=== PATIENT | male | born 1940 | race Caucasian/White ===

== ENCOUNTER 2016-07-07 09:14 | Outpatient (RCR) | payer MEDICARE, BC, OTHER ==
[~2016-07-07 09:14] MED LIST: ACET-93 PO; ASPI-504 PO; CPR500T PO; FRSM40T PO; ISM30TCR PO; LOVA40TA2 PO; NAPR1TAB21 PO; POTA10CA43 PO; POTA10TA6 PO; SMV10T PO; TICA90TA PO; TMSL.4C PO; cholesterol
--- OUTSIDE RECORDS SUMMARY | 2016-07-07 09:19 | XMS REPORT | Continuity of Care Document ---
Author Author [facility] Organization [facility] Address Unknown Phone Unavailable Care Team Providers Care Sexton Helper Name Role Phone LEANDRO BLACKMAN MD PCP Insurance Providers Payer Name Policy Number Subscriber Name Relationship [employer] Medicare [id number] Michael,Nate H 20 Self / Same As Patient [facility] [id number] Heber Rodriguez E 01 For Life [id number] Kyung Rodriguezterrence Cole 20 Self / Same As Patient Advance Directives Directive Response Recorded Date/Time Advance Directives No 03/12/16 12:24pm Organ Donor No 03/12/16 12:24pm Resuscitation Status Full Code 03/12/16 12:24pm Problems No problem information available. Medications Current Home Medications Medication Dose Units Route Directions Days/Qty Instructions Start Date Aspirin 81 Mg 81 Mg Oral Bedtime 12/05/13 Lovastatin (Mevacor) 40 Mg 40 Mg Oral Bedtime 12/06/13 Acetaminophen 500 Mg 1,000 Mg Oral Twice A Day as needed for Pain TAKES 2 (500 MG) TABLETS 03/12/16 Ticagrelor 90 Mg 90 Mg Oral Twice A Day 60 03/13/16 Past Home Medications Medication Directions Ordered Status Furosemide 40 Mg Tab, 40 Mg Oral Daily 12/05/13 Discontinued Naproxen/Esomeprazole Mag 1 Each Tbmp.12hr, 1 Each Oral Twice A Day 12/05/13 Discontinued Potassium Chloride (Micro K) 10 Meq Capsule.sa, 1 Each Oral Daily 12/05/13 Discontinued [Cholesterol] Unknown Strength , Unknown Dose 12/05/13 Discontinued Ciprofloxacin 500 Mg Tab, 500 Mg Oral Twice A Day 12/05/13 Discontinued Potassium Chloride 10 Meq Tablet.sa, 10 Meq Oral Daily 12/06/13 Discontinued Isosorbide Mononitrate 30 Mg Tab, 30 Mg Oral Daily@0630 12/07/13 Discontinued Simvastatin 10 Mg Tab, 10 Mg Oral Bedtime 03/14/14 Discontinued Tamsulosin Hcl 0.4 Mg Cap, 0.4 Mg Oral Daily@1800 03/14/14 Discontinued Social History Social History Problem Response Recorded Date/Time Alcohol Use Denies Use 03/11/2014 7:13am Recreational Drug Use No 03/11/2014 7:13am Recent Foreign Travel No 03/11/2014 7:13am Recent Infectious Disease Exposure No 03/11/2014 7:13am Hospitalization with Isolation Denies 03/14/2014 12:19pm Smoking Status Current Everyday Smoker 03/12/2016 12:24pm Query Response Start Date Stop Date Smoking Status Current Everyday Smoker Hospital Discharge Instructions Patient Instructions Physician Instructions Follow Up/Plan appointment with Dr. Quiles's office in 2-4 weeks CARDIAC CATH DISCHARGE INSTRUCTIONS *Hold Metformin for 48 hours post heart cath. ACTIVITY * Go Home directly and rest. * Limit activity of the leg (or wrist if it was used) for 7 days including aerobics, swimming, jogging, bicycling, etc. * Restrict stair-climbing for 7 days if possible, if not, climb up with your non-cath leg, then bring together on the same step. * Avoid lifting, pushing, pulling or excessive movement of the affected extremity for 7 days. * Customary sexual activity may be resumed after 2 days-use caution not to use a position that strains or causes pain to the affected extremity. * No driving for 24 hours. * NO SMOKING. * Avoid straining for bowel movements for 7 days. * Gentle walking on level ground is allowed. * Returning to work will depend on the type of procedure and the results. Your doctor will discuss this with you. CALL YOUR DOCTOR FOR ANY OF THE FOLLOWING: *If bleeding from the puncture site occurs- Apply gentle pressure to site with clean cloth and call your doctor or EMS. * If a knot or lump forms under the skin, increases in size, or causes pain. * If bruising appears to be worsening or moving further down your leg instead of disappearing. * Temperature above 101 F. CARE OF YOUR GROIN INCISION; * Bruising or purple discoloration of the skin near the puncture site is common. * You may shower only, no bathtub bathing for 5 days. Be careful to avoid slipping as your leg may feel stiff. * If a closure device was used on your femoral artery, please see the attached guide regarding care of the device and your leg. * REMOVE the dressing from your groin the next day after your procedure in the shower. CARE OF YOUR WRIST INCISION; * Bruising or purple discoloration of the skin near the puncture site is common. * You may shower. * DO NOT submerge wrist. * Remove dressing in 24 hours. Plan of Care Discharge Date 03/13/16 9:50am Instructions/Education Provided CARDIAC CATH DISCHARGE INSTRUC Prescriptions See Medication Section Functional Status Query Response Date Recorded Patient Orientation Person Place Time Situation March 13, 2016 12:08pm Comprehension Ability Understands Concepts March 13, 2016 8:05am Allergies, Adverse Reactions, Alerts No known allergies. Immunizations Name Given Type Date of Pneumonia Vaccine 03/03/13 Historical Date of Influenza Vaccine 08/12/15 Historical Tetanus Booster (TDap) Less than 5yrs Historical Vital Signs Acute Vital Signs Vital Response Date/Time Temperature (Fahrenheit) 97.6 degrees F (97.6 - 99.5) 03/13/2016 9:50am Temperature (Calculated Celsius) 36.52733 degrees C (36.4 - 37.5) 03/13/2016 8:05am Temperature Source Tympanic 03/13/2016 9:50am Pulse Rate (adult) 60 bpm (60 - 90) 03/13/2016 9:50am Respiratory Rate 20 bpm (12 - 24) 03/13/2016 9:50am O2 Sat by Pulse Oximetry 97 % (88 - 100) 03/13/2016 9:50am Blood Pressure 125/70 mm Hg 03/13/2016 9:50am Blood Pressure Mean 88 mm Hg 03/13/2016 8:05am Pain Pain Intensity 0 03/13/2016 8:09am Height (Feet) 5 feet 03/12/2016 12:37pm Height (Inches) 9.00 inches 03/12/2016 12:37pm Height (Calculated Centimeters) 175.049031 cm 03/12/2016 12:37pm Weight (Pounds) 187 pounds 03/12/2016 12:37pm Weight (Ounces) 0.0 oz 03/12/2016 12:37pm Weight (Calculated Grams) 27994.774 gm 03/12/2016 12:37pm Weight (Calculated Kilograms) 84.655950 kilograms 03/12/2016 12:37pm Calculated BMI 27.6 03/12/2016 12:37pm Results Pending Laboratory Results Test Name Collection Date/Time Procedures Procedure Status Date Provider(s) Tracing only of electrocardiogram Active 03/12/16 CORETTA QUILES MD Tracing only of electrocardiogram Active 03/12/16 CORETTA QUILES MD Encounters Encounter Location Arrival/Admit Date Discharge/Depart Date Attending Provider Departed [facility] 03/12/16 12:05pm 03/13/16 9:50am CORETTA QUILES MD Registered Clinic [facility] 02/25/16 1:04pm AMERICA DALTON MD Registered Clinic [facility] 02/13/16 12:51pm POLINA FORTUNE DO
== END 2016-10-05 | disposition home or self-care (01) ==
LOC: ONC 09:14
PROVIDERS: ATTEND Internal Medicine Hematology & Oncology
DX: D72.821 Monocytosis (symptomatic) (principal); D47.2 Monoclonal gammopathy; R91.1 Solitary pulmonary nodule; J44.9 Chronic obstructive pulmonary disease, unspecified; I73.9 Peripheral vascular disease, unspecified; N28.1 Cyst of kidney, acquired; F17.210 Nicotine dependence, cigarettes, uncomplicated
CPT/HCPCS: 99213

== ENCOUNTER → 2016-11-10 | Outpatient (CLI) | payer MEDICARE, BC, OTHER ==
[~2016-11-10] MED LIST changes: +CATHETER FLUSH 10 ML SYR IV PRN
--- OUTSIDE RECORDS SUMMARY | 2016-11-10 07:29 | XMS REPORT | Continuity of Care Document ---
Author Author [facility] Organization [facility] Address Unknown Phone Unavailable Care Team Providers Care Hall Clerk Name Role Phone LEANDRO BLACKMAN MD PCP Insurance Providers Payer Name Policy Number Subscriber Name Relationship W[employer] [id number] Nate Rodriguez 20 Self / Same As Patient [facility] [id number] Heber Rodriguez E 01 For Life [id number] Nate Rodriguez 20 Self / Same As Patient Advance Directives Directive Response Recorded Date/Time Advance Directives No 03/12/16 12:24pm Organ Donor No 03/12/16 12:24pm Problems No problem information available. [...] 7:13am Hospitalization with Isolation Denies 03/14/2014 12:19pm Hospitalization with Isolation Denies 03/14/2014 12:19pm Hospital Discharge Instructions Current inpatient/outpatient. Discharge instructions are currently unavailable. Plan of Care Prescriptions Functional Status No functional status results. Allergies, Adverse Reactions, Alerts No known allergies. Immunizations No immunization records. Vital Signs No known vital signs results. Results No known relevant diagnostic tests, laboratory data and/or discharge summary. Procedures No known history of procedures. Encounters Encounter Location Arrival/Admit Date Discharge/Depart Date Attending Provider Registered Clinic [facility] 09/06/16 3:11pm AMERICA DALTON MD Discharged Recurring [facility] 07/07/16 9:14am 11:59pm BRAXTON CONNOR MD
[2016-11-10 09:17] VITALS: BP 120/70
[2016-11-10 09:23] VITALS: BP 131/53
[2016-11-10 09:26] VITALS: BP 110/55
[2016-11-10 09:29] VITALS: BP 134/69
[2016-11-10 09:31] VITALS: BP 127/67
--- NOTE | 2016-11-11 09:19 | STRESS TEST ---
PROCEDURE PHYSICIAN: CORETTA KING DATE OF PROCEDURE: 11/10/2016 EXERCISE MYOVIEW STRESS TEST REPORT: REFERRING PHYSICIAN: Dr. Lorenzo INDICATION: 1. Chest pain. 2. Coronary artery disease. BASELINE HEART RATE: 64 BASELINE BLOOD PRESSURE: 117/77 BASELINE EKG: Sinus rhythm with no ischemic changes. IN SUMMARY: The patient was injected with 10.88 mCi of technetium 99 Myoview and the resting images were obtained. Then the patient started exercising with a baseline heart rate, blood pressure, and EKG mentioned above. At minute 5, the patient was injected with 29.1 mCi of technetium 99 Myoview. The patient was able to finish a total of 6 minutes on standard Sincere protocol, achieving maximum heart rate of 120, which is 82% of maximum expected heart rate. With peak exercise level, EKG was showing nondiagnostic changes. Blood pressure was 140/96. During recovery, heart rate and blood pressure returned to baseline. EKG returned to baseline. The resting and stress images were reviewed and compared in the short axis, horizontal long axis, and vertical long axis views. Review of the images showed diaphragmatic attenuation with typical male pattern. No significant ischemia or infarction. SSS is 3, SDS 3, TID value 1.06. On the gated images, the left ventricle appeared to be normal size with normal contractility. Calculated ejection fraction 53%. IN CONCLUSION: 1. Fair exercise tolerance a total of 6 minutes on standard Sincere protocol. Total of 7 METs achieving 82% of maximum expected heart rate. 2. Minimal nondiagnostic EKG changes with exercise. Returned to baseline during recovery. 3. Typical male pattern with no significant ischemia or infarction on SPECT images. 4. Normal left ventricular size with normal contractility. Calculated ejection fraction 53%. Job ID: [id number] Dictated Date: 11/10/2016 15:59:40 Die Designer Apprentice Date: 11/11/2016 09:14:22 / heidy
== END ==
LOC: CARD 07:24
PROVIDERS: ATTEND Physician Assistant
DX: I25.10 Atherosclerotic heart disease of native coronary artery without angina pectoris (principal); I65.23 Occlusion and stenosis of bilateral carotid arteries; R07.89 Other chest pain; E78.2 Mixed hyperlipidemia
CPT/HCPCS: 78452; 93017

== ENCOUNTER 2017-01-05 09:31 | Outpatient (RCR) | payer MEDICARE, BC, OTHER ==
[2017-01-03 08:10] LABS: PEP REPORT SEE PATH REPORT
[2017-01-03 08:11] LABS: BASOPHILS # (AUTO) 0.1 10^3/uL (0.0-0.1); BASOPHILS % (AUTO) 1 % (0-10); EOSINOPHILS # (AUTO) 0.2 10^3/uL (0.0-0.3); EOSINOPHILS % (AUTO) 2 % (0-10); LYMPHOCYTES # (AUTO) 2.8 X 10^3 (1.0-4.0); LYMPHOCYTES % (AUTO) 26 % (12-44); MEAN CORPUSCULAR HEMOGLOBIN 29 PG (25-34); MEAN CORPUSCULAR HGB CONC 34 G/DL (32-36); MEAN CORPUSCULAR VOLUME 87 FL (80-99); MEAN PLATELET VOLUME 10.1 FL (7.4-10.4); MONOCYTES # (AUTO) 1.2 X 10^3 (0.0-1.0); MONOCYTES % (AUTO) 12 % (0-12); NEUTROPHILS # (AUTO) 6.3 X 10^3 (1.8-7.8); NEUTROPHILS % (AUTO) 60 % (42-75); PLATELET COUNT 253 10^3/uL (130-400); RED BLOOD COUNT 5.58 10^6/uL (4.35-5.85); RED CELL DISTRIBUTION WIDTH 14.4 % (10.0-14.5); WHITE BLOOD COUNT 10.5 10^3/uL (4.3-11.0)
[2017-01-03 08:32] LABS: ALANINE AMINOTRANSFERASE 10 U/L (0-55); ALBUMIN 3.9 G/DL (3.2-4.5); ANION GAP 7 MMOL/L (5-14); ASPARTATE AMINO TRANSFERASE 14 U/L (5-34); BILIRUBIN,TOTAL 0.4 MG/DL (0.1-1.0); BLOOD UREA NITROGEN 14 MG/DL (7-18); BUN/CREATININE RATIO 14; CALCIUM 9.2 MG/DL (8.5-10.1); CARBON DIOXIDE 26 MMOL/L (21-32); CHLORIDE 106 MMOL/L (98-107); CREATININE SERUM 1.02 MG/DL (0.60-1.30); GFR ESTIMATED > 60; GLUCOSE 99 MG/DL (70-105); POTASSIUM 4.1 MMOL/L (3.6-5.0); SODIUM 139 MMOL/L (135-145); TOTAL PROTEIN 6.8 G/DL (6.4-8.2)
[2017-01-04 03:25] LABS: IMMUNOGLOBULIN IGA 136 mg/dL (71-263); IMMUNOGLOBULIN IGG 1037 mg/dL (672-1680); LIGHT CHAIN KAPPA SERUM QUANT 38.65 mg/L (3.30-19.40); LIGHT CHAIN LAMBDA SERUM QUANT 17.41 mg/L (5.71-26.30)
[2017-01-04 07:12] LABS: IMMUNOGLOBULIN IGM 134 mg/dL (47-209)
[~2017-01-05 09:31] MED LIST changes: -CATHETER FLUSH 10 ML SYR IV PRN
[2017-01-06 07:32] LABS: CLIN PATHOLOGY REPORT FOOTNOTE; SERUM PROTEIN ELEC DETAIL L-17-0004381
== END 2017-04-03 | disposition home or self-care (01) ==
LOC: ONC 09:31
PROVIDERS: ATTEND Internal Medicine Hematology & Oncology
DX: D72.821 Monocytosis (symptomatic) (principal); D47.2 Monoclonal gammopathy; R91.1 Solitary pulmonary nodule; J44.9 Chronic obstructive pulmonary disease, unspecified; I73.9 Peripheral vascular disease, unspecified; N28.1 Cyst of kidney, acquired; F17.210 Nicotine dependence, cigarettes, uncomplicated
CPT/HCPCS: 36415; 80053; 82784; 83883; 84155; 84165; 85025; 99213

== ENCOUNTER → 2017-04-27 | Outpatient (CLI) | payer MEDICARE, BC, OTHER ==
--- NOTE | 2017-04-27 10:54 | Diagnostic Imaging Report ---
INDICATION: Right-sided fullness COMPARISON: None FINDINGS: 3 views of the sinuses are obtained. There is near-complete opacification of the right maxillary sinus with somewhat masslike rounded contour medially suggestive of a mucous retention cysts or polyps. There is very minimal mucosal thickening in the left maxillary sinus. No osseous abnormality is seen. IMPRESSION: 1. Near complete opacification of the right maxillary sinus may be related to severe sinusitis or to a mucous retention cyst or polyp. Minimal left maxillary sinus inflammatory change. 2. No additional abnormality is seen. Dictated by: Dictated on workstation # [id number]
== END ==
LOC: RAD 08:46
DX: J01.01 Acute recurrent maxillary sinusitis (principal)
CPT/HCPCS: 70220

== ENCOUNTER → 2017-05-04 | Outpatient (CLI) | payer MEDICARE, BC, OTHER ==
--- NOTE | 2017-05-04 13:49 | Diagnostic Imaging Report ---
PROCEDURE: CT chest without contrast. TECHNIQUE: Multiple contiguous axial images were obtained through the chest without the use of intravenous contrast. INDICATION: Chronic bronchitis. FINDINGS: The previous CT chest exam of 04/09/16 noted chronic pulmonary disease but failed to show any sign of an acute cardiopulmonary abnormality. On this study, the chronic pulmonary changes are again visualized and do not seem to have changed significantly. There is still no sign of failure, pneumonia or pleural effusion to indicate an acute abnormality. The previous study did show a small 4 mm noncalcified nodule along the periphery of the right upper lung. That finding is again evident and does not appear to have changed significantly (image 19 of 66). There is also a 3.8 mm nodule along the posterior aspect of the right upper lobe (image 21 of 66). In retrospect, this was present on the prior exam and does not seem to have changed significantly. I suspect that this is a benign process. There is no other parenchymal lung mass identified. The heart size is stable. The dense coronary artery calcifications seen previously are again evident. The aorta is not abnormally dilated, stable in size when compared to the prior exam. There is no obvious mediastinal or hilar adenopathy. There are a few small nodes but these seem stable when compared to the prior exam. The thyroid gland is generally unremarkable. The sections through the upper abdomen again show the large roughly 9 cm cyst associated with the left kidney. There is no acute abnormality identified. The bone windows are unremarkable for a fracture or for a destructive lesion. IMPRESSION: 1. There is chronic pulmonary disease but there is no sign of an acute cardiopulmonary abnormality. 2. The small nodules in the right lung are most likely benign. A followup CT chest exam in one year would be recommended for continued evaluation, however. 3. The heart is not enlarged but there are dense coronary artery calcifications. 4. The large cyst associated with the left kidney is again evident. Most likely, this is a benign process. Dictated by: Dictated on workstation # [id number]
== END ==
LOC: RAD 10:20
PROVIDERS: ATTEND Nurse Practitioner Family
DX: J44.9 Chronic obstructive pulmonary disease, unspecified (principal); R91.1 Solitary pulmonary nodule; R06.09 Other forms of dyspnea; Z72.0 Tobacco use
CPT/HCPCS: 71250

== ENCOUNTER → 2017-05-26 | Outpatient (CLI) | payer MEDICARE, BC, OTHER ==
--- NOTE | 2017-05-26 14:13 | Diagnostic Imaging Report ---
CLINICAL INDICATION: Patient with congestion on right side. No history of surgery. EXAM: Axial maxillofacial CT scan performed without IV contrast with coronal reformations. COMPARISON: None. FINDINGS: PARANASAL SINUSES: FRONTAL: Unremarkable. ETHMOID: Unremarkable. MAXILLARY: There is near complete consolidation of the right maxillary sinus. There is also chronic sinusitis, bony sclerosis and thickening involving the right maxillary sinus. The left maxillary sinus is clear. SPHENOID: Unremarkable. OTHER PARANASAL SINUS FINDINGS: The bilateral ostiomeatal unit regions are clear. There is belkis bullosa of both middle nasal turbinates. There is paradoxical curvature of both middle nasal turbinates. NASAL SEPTUM: The nasal septum is significantly tortuous and demonstrates 5 mm of rightward nasal septal deviation anteriorly and predominantly 3 mm of leftward nasal septal deviation in its midportion with an associated 4 mm leftward directed nasal septal bony spur. VISUALIZED TEMPORAL BONE STRUCTURES: Unremarkable. BONY STRUCTURES: There is no acute process. EXTRACRANIAL SOFT TISSUE/ ORBITS: Unremarkable. IMPRESSION: 1: There is near complete consolidation of the right maxillary sinus. There are also right maxillary sinus bony chronic sinusitis changes. 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 3: Tortuous nasal septum including a leftward directed nasal septal bony spur. 4: Paradoxical curvature of both middle nasal turbinates. Dictated by: Dictated on workstation # [id number]
== END ==
LOC: RAD 13:32
PROVIDERS: ATTEND Otolaryngology Otolaryngology/Facial Plastic Surgery
DX: J32.0 Chronic maxillary sinusitis (principal); J34.89 Other specified disorders of nose and nasal sinuses
CPT/HCPCS: 70486

== ENCOUNTER 2017-06-30 09:56 | Outpatient (RCR) | payer MEDICARE, BC, OTHER ==
[2017-06-22 08:46] LABS: BASOPHILS % (AUTO) 0 % (0-10); EOSINOPHILS # (AUTO) 0.3 10^3/uL (0.0-0.3); EOSINOPHILS % (AUTO) 2 % (0-10); LYMPHOCYTES # (AUTO) 3.3 X 10^3 (1.0-4.0); LYMPHOCYTES % (AUTO) 23 % (12-44); MEAN CORPUSCULAR HEMOGLOBIN 29 PG (25-34); MEAN CORPUSCULAR HGB CONC 33 G/DL (32-36); MEAN CORPUSCULAR VOLUME 88 FL (80-99); MEAN PLATELET VOLUME 9.3 FL (7.4-10.4); MONOCYTES # (AUTO) 1.4 X 10^3 (0.0-1.0); MONOCYTES % (AUTO) 10 % (0-12); NEUTROPHILS # (AUTO) 9.3 X 10^3 (1.8-7.8); NEUTROPHILS % (AUTO) 65 % (42-75); PLATELET COUNT 247 10^3/uL (130-400); RED BLOOD COUNT 5.35 10^6/uL (4.35-5.85); RED CELL DISTRIBUTION WIDTH 15.7 % (10.0-14.5); WHITE BLOOD COUNT 14.3 10^3/uL (4.3-11.0)
[2017-06-22 08:54] LABS: PEP REPORT SEE PATH REPORT
[2017-06-22 09:22] LABS: ALANINE AMINOTRANSFERASE 17 U/L (0-55); ALBUMIN 3.8 GM/DL (3.2-4.5); ANION GAP 7 MMOL/L (5-14); ASPARTATE AMINO TRANSFERASE 13 U/L (5-34); BILIRUBIN,TOTAL 0.6 MG/DL (0.1-1.0); BLOOD UREA NITROGEN 12 MG/DL (7-18); BUN/CREATININE RATIO 14; CALCIUM 9.1 MG/DL (8.5-10.1); CARBON DIOXIDE 28 MMOL/L (21-32); CHLORIDE 103 MMOL/L (98-107); CREATININE SERUM 0.84 MG/DL (0.60-1.30); GFR ESTIMATED > 60; GLUCOSE 96 MG/DL (70-105); POTASSIUM 4.4 MMOL/L (3.6-5.0); SODIUM 138 MMOL/L (135-145); TOTAL PROTEIN 6.8 GM/DL (6.4-8.2)
[2017-06-23 08:28] LABS: LIGHT CHAIN KAPPA SERUM QUANT 34.09 mg/L (3.30-19.40); LIGHT CHAIN LAMBDA SERUM QUANT 10.18 mg/L (5.71-26.30)
[2017-06-24 09:17] LABS: CLIN PATHOLOGY REPORT FOOTNOTE; SERUM PROTEIN ELEC DETAIL L-17-0012510
== END 2017-07-02 | disposition home or self-care (01) ==
LOC: ONC 09:56
PROVIDERS: ATTEND Internal Medicine Hematology & Oncology
DX: D72.821 Monocytosis (symptomatic) (principal); D47.2 Monoclonal gammopathy; R91.1 Solitary pulmonary nodule; J44.9 Chronic obstructive pulmonary disease, unspecified; I73.9 Peripheral vascular disease, unspecified; N28.1 Cyst of kidney, acquired; F17.210 Nicotine dependence, cigarettes, uncomplicated
CPT/HCPCS: 36415; 80053; 83883; 84155; 84165; 85025; 99213

== ENCOUNTER → 2017-11-09 | Outpatient (CLI) | payer MEDICARE, BC, OTHER ==
[~2017-11-09] VITALS: Ht 175.3 cm; Wt 77.6 kg
[~2017-11-09] MED LIST changes: +CATHETER FLUSH 10 ML SYR IV PRN
== END ==
LOC: CARD 10:50
PROVIDERS: ATTEND Internal Medicine Cardiovascular Disease
DX: I25.10 Atherosclerotic heart disease of native coronary artery without angina pectoris (principal); R09.89 Other specified symptoms and signs involving the circulatory and respiratory systems; R07.89 Other chest pain; I73.9 Peripheral vascular disease, unspecified; R06.09 Other forms of dyspnea; E78.2 Mixed hyperlipidemia

== ENCOUNTER → 2018-03-22 | Outpatient (CLI) | payer MEDICARE, BC, OTHER ==
[~2018-03-22] MED LIST changes: -CATHETER FLUSH 10 ML SYR IV PRN; +GADOBUTROL 7.5 MMOL/7.5 ML (GADAVIST) VIAL IV ONE
--- NOTE | 2018-03-22 11:12 | Diagnostic Imaging Report ---
PROCEDURE: MR imaging of the brain with and without contrast. TECHNIQUE: Multiplanar, multisequence MR imaging of the brain was performed with and without contrast. INDICATION: Dizziness for the last six months with left arm and left leg burning sensation. COMPARISON: Comparison is made with prior MRI brain from 05/25/2013. FINDINGS: Diffusion-weighted images are unremarkable. No diffusion restriction is seen to suggest acute ischemia. Overall ventricular size and sulcal pattern appears stable. There are periventricular and subcortical white matter signal abnormalities noted consistent with chronic microvascular ischemia. No abnormal enhancement is identified following contrast administration. The corpus callosum is unremarkable. The sella and parasellar structures are unremarkable. Normal expected flow voids in the carotid siphons are seen. IMPRESSION: Changes of chronic microvascular ischemia. Overall appearance is similar to the exam from 05/25/2013. No acute intracranial process is detected. Dictated by: Dictated on workstation # [id number]
== END ==
LOC: RAD 09:27
DX: I67.82 Cerebral ischemia (principal); G83.24 Monoplegia of upper limb affecting left nondominant side
CPT/HCPCS: 70553

== ENCOUNTER 2018-06-29 09:06 | Outpatient (RCR) | payer MEDICARE, BC, OTHER ==
[2018-06-15 08:52] LABS: BASOPHILS # (AUTO) 0.1 10^3/uL (0.0-0.1); BASOPHILS % (AUTO) 0 % (0-10); EOSINOPHILS # (AUTO) 0.3 10^3/uL (0.0-0.3); EOSINOPHILS % (AUTO) 2 % (0-10); HEMATOCRIT 46 % (40-54); HEMOGLOBIN 15.1 G/DL (13.3-17.7); LYMPHOCYTES # (AUTO) 3.9 X 10^3 (1.0-4.0); LYMPHOCYTES % (AUTO) 31 % (12-44); MEAN CORPUSCULAR HEMOGLOBIN 29 PG (25-34); MEAN CORPUSCULAR HGB CONC 33 G/DL (32-36); MEAN CORPUSCULAR VOLUME 88 FL (80-99); MONOCYTES # (AUTO) 1.5 X 10^3 (0.0-1.0); MONOCYTES % (AUTO) 12 % (0-12); NEUTROPHILS # (AUTO) 6.7 X 10^3 (1.8-7.8); NEUTROPHILS % (AUTO) 54 % (42-75); PLATELET COUNT 260 10^3/uL (130-400); RED BLOOD COUNT 5.21 10^6/uL (4.35-5.85); RED CELL DISTRIBUTION WIDTH 14.3 % (10.0-14.5); WHITE BLOOD COUNT 12.5 10^3/uL (4.3-11.0)
[2018-06-15 09:10] LABS: ALANINE AMINOTRANSFERASE 13 U/L (0-55); ALKALINE PHOSPHATASE 60 U/L (40-136); BILIRUBIN,TOTAL 0.5 MG/DL (0.1-1.0); BUN/CREATININE RATIO 14; CALCIUM 9.3 MG/DL (8.5-10.1); CARBON DIOXIDE 23 MMOL/L (21-32); CHLORIDE 104 MMOL/L (98-107); CREATININE SERUM 0.81 MG/DL (0.60-1.30); GFR ESTIMATED > 60; GLUCOSE 96 MG/DL (70-105); POTASSIUM 4.3 MMOL/L (3.6-5.0); SODIUM 136 MMOL/L (135-145); TOTAL PROTEIN 6.7 GM/DL (6.4-8.2)
[~2018-06-29 09:06] MED LIST changes: -GADOBUTROL 7.5 MMOL/7.5 ML (GADAVIST) VIAL IV ONE
== END 2018-07-02 | disposition home or self-care (01) ==
LOC: ONC 09:06
PROVIDERS: ATTEND Internal Medicine Hematology & Oncology
DX: D72.821 Monocytosis (symptomatic) (principal); D47.2 Monoclonal gammopathy; R91.1 Solitary pulmonary nodule; J44.9 Chronic obstructive pulmonary disease, unspecified; I73.9 Peripheral vascular disease, unspecified; N28.1 Cyst of kidney, acquired; F17.210 Nicotine dependence, cigarettes, uncomplicated
CPT/HCPCS: 36415; 80053; 83883; 84155; 84165; 85025; 99213

== ENCOUNTER → 2018-12-20 | Outpatient (CLI) | payer MEDICARE, BC, OTHER | LOC: CARD 13:55 | PROVIDERS: ATTEND Physician Assistant | DX: I25.10 Atherosclerotic heart disease of native coronary artery without angina pectoris (principal); E78.2 Mixed hyperlipidemia; R07.89 Other chest pain; I07.1 Rheumatic tricuspid insufficiency | CPT/HCPCS: 93306 ==

== ENCOUNTER → 2019-01-01 | Outpatient (CLI) | payer MEDICARE, OTHER, BC ==
[~2019-01-01] MED LIST changes: +CATHETER FLUSH 10 ML SYR IV PRN; +REGADENOSON 0.4 MG/5 ML SYR (LEXISCAN) IV ONE
[2019-01-01 09:42] VITALS: BP 115/73
[2019-01-01 09:44] VITALS: BP 121/70
--- NOTE | 2019-01-01 14:44 | STRESS TEST ---
DATE OF SERVICE: 01/01/2019 LEXISCAN MYOVIEW STRESS TEST REPORT REFERRING PHYSICIAN: Dr. Lorenzo Baseline heart rate is 58, baseline blood pressure 115/73. Baseline EKG is sinus rhythm with no ischemic changes. In summary, the patient was injected with 10.88 mCi of technetium-99 Myoview and the resting images were obtained. Then, the patient received 0.4 mg of Lexiscan followed by 30.6 mCi of technetium-99 Myoview. Throughout the test, there were no EKG changes. The resting and stressed images were reviewed and compared in the short axis, horizontal long axis, and vertical long axis views. Review of the images showed diaphragmatic attenuation with typical male pattern. No significant ischemia was noted. SSS is 3, SDS 3, TID value 1.02. On the gated images, the left ventricle appeared to be in normal size with normal contractility. Calculated ejection fraction 53%. CONCLUSION: 1. The patient tolerated Lexiscan well. 2. Diaphragmatic attenuation with typical male pattern with no significant ischemia or infarction on SPECT images. 3. Normal left ventricular size with normal contractility. Calculated ejection fraction 53%. Job ID: [id number] DocumentID: [id number] Dictated Date: 01/01/2019 12:11:55 Black Top Spreader Machine Operator Date: 01/01/2019 14:43:23 Dictated By: CORETTA KING MD
== END ==
LOC: CARD 08:02
PROVIDERS: ATTEND Physician Assistant
DX: I25.10 Atherosclerotic heart disease of native coronary artery without angina pectoris (principal); E78.2 Mixed hyperlipidemia; R07.89 Other chest pain
CPT/HCPCS: 78452; 93017

== ENCOUNTER → 2019-07-03 | Outpatient (CLI) | payer MEDICARE, BC, OTHER ==
[~2019-07-03] MED LIST changes: +HOLD METFORMIN - RECEIVED CONTRAST 20 ML VIAL IV SCH; +IOHEXOL 350 MG/ML 100 ML (OMNIPAQUE 350) VIAL IV ONE; +NS 100 ML (IVPB) BAG IV ONE; -REGADENOSON 0.4 MG/5 ML SYR (LEXISCAN) IV ONE
[2019-07-03 11:32] LABS: BUN/CREATININE RATIO 15; CREATININE SERUM 0.95 MG/DL (0.60-1.30); GFR ESTIMATED > 60
--- NOTE | 2019-07-03 13:10 | Diagnostic Imaging Report ---
PROCEDURE: CT chest with contrast only. TECHNIQUE: Multiple contiguous axial images were obtained through the chest after administration of intravenous contrast. Auto Exposure Controls were utilized during the CT exam to meet ALARA standards for radiation dose reduction. INDICATION: Chronic bronchitis FINDINGS: The previous CT chest exam of 05/04/2017 noted chronic pulmonary changes but failed to show any sign of an acute abnormality. There are also a few small (4 mm or less) nodules in the right lung. On this exam, the emphysematous changes involving both lungs and the interstitial lung disease noted previously do seem slightly worse. There is still no consolidated pneumonia identified nor is there any evidence for a pleural effusion. There is greater dependent atelectasis in both lower lobes than noted on the prior exam. The small nodules in the right lung seen previously do not seem to have changed adversely. The heart size is stable. Coronary artery calcifications are again evident as is the stent in the LAD. The aorta is not abnormally dilated, and there is no sign of a dissection. There is no defect within the pulmonary arteries to indicate a pulmonary embolus either. As noted on the prior exam, there are several small nodes in the right hilum and in the aorticopulmonary window. These nodes are unchanged when compared to the prior study. The thyroid gland is generally unremarkable. The sections through the upper abdomen again show the large cyst associated with the left kidney. There is no acute abnormality of the upper abdomen. The bone windows show no sign of a fracture or of a destructive lesion. IMPRESSION: 1. The chronic pulmonary changes evident on the prior study do seem somewhat worse on this exam. There is still no evidence for an acute cardiopulmonary abnormality, however. 2. The small nodules in the periphery of the right mid lung noted on the prior exam do not appear to have changed adversely. 3. The heart is stable in size. Coronary artery calcifications and a coronary artery stent are again noted. Dictated by: Dictated on workstation # [id number]
== END ==
LOC: RAD 10:51
PROVIDERS: ATTEND Nurse Practitioner Family
DX: I25.10 Atherosclerotic heart disease of native coronary artery without angina pectoris (principal); J44.9 Chronic obstructive pulmonary disease, unspecified; R91.8 Other nonspecific abnormal finding of lung field; Z95.5 Presence of coronary angioplasty implant and graft
CPT/HCPCS: 36415; 71260; 82565; 84520

== ENCOUNTER → 2019-07-11 | Outpatient (CLI) | payer MEDICARE, BC, OTHER ==
[~2019-07-11] MED LIST changes: -CATHETER FLUSH 10 ML SYR IV PRN; -HOLD METFORMIN - RECEIVED CONTRAST 20 ML VIAL IV SCH; -IOHEXOL 350 MG/ML 100 ML (OMNIPAQUE 350) VIAL IV ONE; -NS 100 ML (IVPB) BAG IV ONE; +RT-ALBUTEROL SULF 2.5 MG/3 ML PRE-MIX VIAL INH ONE
== END ==
LOC: RT 08:59
PROVIDERS: ATTEND Nurse Practitioner Family
DX: J44.9 Chronic obstructive pulmonary disease, unspecified (principal); R91.1 Solitary pulmonary nodule
CPT/HCPCS: 94060; 94726; 94729

== ENCOUNTER → 2019-08-08 | Outpatient (CLI) | payer MEDICARE, BC, OTHER ==
[~2019-08-08] MED LIST changes: -RT-ALBUTEROL SULF 2.5 MG/3 ML PRE-MIX VIAL INH ONE
[2019-08-08 08:45] LABS: ALANINE AMINOTRANSFERASE 15 U/L (0-55); ALBUMIN 4.1 GM/DL (3.2-4.5); ALKALINE PHOSPHATASE 58 U/L (40-136); BILIRUBIN,TOTAL 0.5 MG/DL (0.1-1.0); BUN/CREATININE RATIO 12; CALCIUM 9.8 MG/DL (8.5-10.1); CARBON DIOXIDE 28 MMOL/L (21-32); CHLORIDE 103 MMOL/L (98-107); CHOLESTEROL 134 MG/DL (< 200); CREATININE SERUM 0.99 MG/DL (0.60-1.30); GFR ESTIMATED > 60; GLUCOSE 98 MG/DL (70-105); HDL CHOLESTEROL 39 MG/DL (40-60); POTASSIUM 4.7 MMOL/L (3.6-5.0); SODIUM 141 MMOL/L (135-145); TOTAL PROTEIN 7.2 GM/DL (6.4-8.2); TRIGLYCERIDES 146 MG/DL (<150); VLDL CHOLESTEROL 29 MG/DL (5-40)
== END ==
LOC: LAB 08:03
PROVIDERS: ATTEND Physician Assistant
DX: I25.10 Atherosclerotic heart disease of native coronary artery without angina pectoris (principal); I65.29 Occlusion and stenosis of unspecified carotid artery; E78.2 Mixed hyperlipidemia
CPT/HCPCS: 36415; 80053; 80061

== ENCOUNTER → 2020-04-22 | Outpatient (CLI) | payer MEDICARE, BC, OTHER ==
--- NOTE | 2020-04-22 12:32 | Diagnostic Imaging Report ---
PROCEDURE: US Renal/Bladder. TECHNIQUE: Multiple real-time grayscale images were obtained over the kidneys in various projections bilaterally. INDICATION: Follow-up left renal cyst. COMPARISON: 09/06/2016. FINDINGS: Right: The right kidney measures 10.0 cm in length. Renal cortical thickness and echogenicity are within normal limits. There is no evidence of calculi, solid focal mass or hydronephrosis. No perinephric fluid collections are identified. Left: The left kidney measures 9.9 cm in length. Renal cortical thickness and echogenicity are within normal limits. An anechoic cyst is seen in the superior pole of the left kidney measuring 5.1 x 5.9 x 5.1 cm. No associated vascularity is seen within the cyst. There is no evidence of calculi, solid focal mass or hydronephrosis. No perinephric fluid collections are identified. There is no abdominal ascites. Views of the pelvis demonstrate a mildly distended urinary bladder. Both ureteral jets are visualized. No large intraluminal filling defect or calculi are identified. IMPRESSION: 1. Prominent cyst in the superior pole of the left kidney which has decreased in size since 2016. No associated vascularity is seen within the cyst. No further follow-up is recommended. 2. No acute renal abnormalities identified. Dictated by: Dictated on workstation # [id number]
== END ==
LOC: RAD 10:45
PROVIDERS: ATTEND Urology
DX: N28.1 Cyst of kidney, acquired (principal)
CPT/HCPCS: 76770

== ENCOUNTER → 2020-07-14 | Outpatient (CLI) | payer MEDICARE, BC, OTHER ==
--- NOTE | 2020-07-14 09:33 | Diagnostic Imaging Report ---
EXAMINATION: CT Chest without contrast (lung screening). TECHNIQUE: Multiple contiguous axial images were obtained through the chest without the use of intravenous contrast according to lung cancer screening protocol. All CT scans use one or more of the following dose optimizing techniques: automated exposure control, MA and/or KvP adjustment based on a patient size and exam type, or iterative reconstruction. HISTORY: 33.5 pack year history of smoking. COMPARISON: CT chest 07/03/2019 FINDINGS: Thyroid: The visualized thyroid is normal. Mediastinum: Heart size is normal without significant pericardial effusion. Calcifications of the aorta and coronary vessels. Thoracic aorta is normal in caliber. No suspicious lymphadenopathy. Lungs and airways: The lungs are clear without consolidation, pleural effusion, or pneumothorax. Mild emphysema and bronchial wall thickening. Minimal bibasilar atelectasis or fibrosis. Stable 0.3 cm right upper lobe pulmonary nodule (series 2 image 67). No new suspicious pulmonary nodule. Upper abdomen: The subphrenic structures are normal. Musculoskeletal: No suspicious osseous lesion or compression fracture. IMPRESSION: 1. Stable 0.3 cm right upper lobe pulmonary nodule. No new suspicious pulmonary nodules. Recommend continued annual low-dose CT screening. LUNG-RADS CATEGORY: 2 MODIFIER: None. Dictated by: Dictated on workstation # [id number]
== END ==
LOC: RAD 08:02
PROVIDERS: ATTEND Nurse Practitioner Family
DX: Z12.2 Encounter for screening for malignant neoplasm of respiratory organs (principal); R91.1 Solitary pulmonary nodule; F17.210 Nicotine dependence, cigarettes, uncomplicated

== ENCOUNTER → 2021-07-16 | Outpatient (CLI) | payer MEDICARE, BC, OTHER ==
[2021-07-16 09:21] LABS: ALBUMIN 3.9 GM/DL (3.2-4.5); POTASSIUM 4.4 MMOL/L (3.6-5.0)
[2021-07-16 09:22] LABS: CALCIUM 9.5 MG/DL (8.5-10.1)
[2021-07-16 09:24] LABS: TOTAL PROTEIN 7.1 GM/DL (6.4-8.2)
[2021-07-16 09:26] LABS: BILIRUBIN,TOTAL 0.5 MG/DL (0.1-1.0)
[2021-07-16 09:27] LABS: CREATININE SERUM 1.04 MG/DL (0.60-1.30)
== END ==
LOC: LAB 08:51
PROVIDERS: ATTEND Physician Assistant
DX: E78.2 Mixed hyperlipidemia (principal)
CPT/HCPCS: 36415; 80053; 80061

== ENCOUNTER → 2021-07-24 | Outpatient (CLI) | payer MEDICARE, BC, OTHER ==
--- NOTE | 2021-07-24 12:17 | Diagnostic Imaging Report ---
CT CHEST SCREENING WO TECHNIQUE: Low-dose unenhanced CT of the chest was performed according to the screening protocol. Coronal MIP and sagittal MPR reformats are created. Automatic exposure controls were utilized to keep dose as low as reasonably achievable. INDICATION: 09-[id number]-ilhm history of smoking, current smoker. COMPARISON: Low-dose CT chest of 07/14/2020. FINDINGS: Pulmonary findings: No tracheal nodule. Moderate paraseptal emphysema in the upper lobes is unchanged. Bronchial wall thickening and scattered small airways mucus plugging are features compatible with chronic bronchitis. Stable 3 mm right upper lobe pulmonary nodule (image 78). No new suspicious pulmonary nodules. Extrapulmonary findings: No axillary or mediastinal lymphadenopathy. No pericardial or pleural effusion. Severe coronary artery calcifications are unchanged. Normal-caliber thoracic aorta. Limited assessment of the upper abdomen is grossly normal. No concerning focal osseous lesions. IMPRESSION: No change to indicate clinically active lung cancer. Lung-RADS category: 2 - Benign appearance or behavior Recommendations: Continued annual screening with low-dose CT in 12 months. Dictated by: Dictated on workstation # [id number]
== END ==
LOC: RAD 08:54
PROVIDERS: ATTEND Nurse Practitioner Family
DX: Z12.2 Encounter for screening for malignant neoplasm of respiratory organs (principal); Z87.891 Personal history of nicotine dependence
CPT/HCPCS: 71271

== ENCOUNTER → 2021-07-24 | Outpatient (CLI) | payer MEDICARE, BC, OTHER | LOC: CARD 09:00 | PROVIDERS: ATTEND Physician Assistant | DX: I11.9 Hypertensive heart disease without heart failure (principal) | CPT/HCPCS: 93306 ==

== ENCOUNTER → 2021-09-07 | Outpatient (CLI) | payer MEDICARE, BC, OTHER ==
[~2021-09-07] VITALS: Ht 172 cm; Wt 81.0 kg
[~2021-09-07] MED LIST changes: +REGADENOSON 0.4 MG/5 ML SYR (LEXISCAN) IV ONE
[2021-09-07] MEDS: CATHETER FLUSH 10 ML SYR IV PRN ×2 (07:43→09:02)
[2021-09-07 09:01] VITALS: BP 117/66
--- NOTE | 2021-09-08 08:03 | Cardiology Stress Test Report ---
Stress Test Report Date of Procedure/Referring: Date of Procedure: Sep 08, 2021 Elzbieta Bucio Admitting Physician Mark Lorenzo MD Indications: CP Baseline Heart Rate: 51 Baseline Blood Pressure: Blood Pressure Systolic: 117 Blood Pressure Diastolic: 66 Baseline Vitals Vital Signs Date Time Temp Pulse Resp B/P (MAP) Pulse Ox O2 Delivery O2 Flow Rate FiO2 09/07/21 09:01 54 16 117/66 (83) 95 Room Air Baseline EKG: Baseline EKG: NSR Summary After explaining the procedure to the patient, he signed a consent and then brought to the stress nuclear laboratory. Patient received 0.4 mg Lexiscan for stress test, ECG, heart rate and blood pressure were monitored continuously. Resting and stress dose of radio tracer were injected, imaging was acquired and reviewed in short axis, horizontal long axis and vertical long axis views. TID: 1.13 SSS: 7 SDS: 4 EF: 52 1. Patient tolerated Lexiscan well 2. Reversible ischemia involving the inferior wall and inferoseptum 3. Normal left ventricular size, EF 52% CORETTA KING MD Sep 08, 2021 08:03
== END ==
LOC: CARD 08:00
PROVIDERS: ATTEND Physician Assistant
DX: R07.9 Chest pain, unspecified (principal); I10 Essential (primary) hypertension
CPT/HCPCS: 78452; 93017; A9502

== ENCOUNTER 2021-10-07 09:00 | Day surgery (SDC) | payer MEDICARE, BC, OTHER ==
[~2021-10-07] VITALS: Ht 172.7 cm; Wt 82.6 kg
[2021-10-07 07:37] VITALS: BP 117/79
[2021-10-07 07:49] LABS: HEMATOCRIT 47 % (40-54); HEMOGLOBIN 15.4 g/dL (13.3-17.7); MEAN CORPUSCULAR HEMOGLOBIN 29 pg (25-34); MEAN CORPUSCULAR HGB CONC 33 g/dL (32-36); MEAN CORPUSCULAR VOLUME 88 fL (80-99); MEAN PLATELET VOLUME 10.3 fL (9.0-12.2); PLATELET COUNT 253 10^3/uL (130-400); WHITE BLOOD COUNT 12.6 10^3/uL (4.3-11.0)
[2021-10-07 08:00] LABS: INR 1.1 (0.8-1.4)
--- NOTE | 2021-10-07 08:04 | Diagnostic Imaging Report ---
Indication: Chest pain. Frontal chest obtained at 0742 a.m. compared with 03/12/2016 Heart and mediastinal silhouette are normal in appearance. The lungs show some chronic appearing increased basilar markings which are similar to the prior study. There is no pneumothorax or pleural fluid. IMPRESSION: No acute process in the chest. Dictated by: Dictated on workstation # [id number]
[2021-10-07 08:05] LABS: ALBUMIN 4.1 GM/DL (3.2-4.5); BILIRUBIN,TOTAL 0.4 MG/DL (0.1-1.0); CALCIUM 9.2 MG/DL (8.5-10.1); CREATININE SERUM 1.03 MG/DL (0.60-1.30); TOTAL PROTEIN 7.2 GM/DL (6.4-8.2)
[~2021-10-07 09:00] MED LIST changes: +ACET325T38 PO; +ASPI-1238 PO; +BETA1TAB15 PO; +CETI10TA49 PO; +CHOL-34 PO; +FLUT1BLS9 IH; +FLUT9.9S NS; +HEParin (CATH LAB) 2,000 ML IV ONE; +HYDR25TA4 PO; +LIDOCAINE 1% INJ 20 ML VIAL ONE; +MELO15TA14 PO; +NAPR220T66 PO; +NS IV 1000 ML 1,000 ML IV SCH; +NS IV 1000 ML 1,000 ML ONE; -REGADENOSON 0.4 MG/5 ML SYR (LEXISCAN) IV ONE; +RT-ALBUINH IH
[2021-10-07] MEDS ORDERED: MIDAZOLAM 5 MG/5 ML (VERSED) VIAL ONE (09:39)
[2021-10-07] MEDS ORDERED: fentaNYL INJ 100 MCG/2 ML AMP ONE (09:39)
--- NOTE | 2021-10-07 09:57 | Conscious Sedation/ASA ---
Conscious Sedation Pre-Proced Time 09:57 ASA Score 3 For ASA 3 and 4: Consider anesthesia and medical clearance. Also, for patients with a history of failed moderate sedation consider anesthesia. Airway Lungs Heart ASA score ASA 1: a normal healthy patient ASA 2: a patient with a mild systemic disease (mid diabetes, controlled hypertension, obesity x ASA 3: a patient with a severe systemic disease that limits activity (angina, COPD, prior Myocardial infarction) ASA 4: a patient with an incapacitating disease that is a constant threat to life (CHF, renal failure) ASA 5: a moribund patient not expected to survive 24 hrs. (ruptured aneurysm) ASA 6: a declared brain- patient whose organs are being harvested. For emergent operations, add the letter E after the classification Mallampati Classification Grade 3 Sedation Plan Analgesia, Amnesia, Plan communicated to team members, Discussed options with patient/fam, Discussed risks with patient/fam The patient is an appropriate candidate to undergo the planned procedure, sedation, and anesthesia. The patient immediately re-assessed prior to indication. CORETTA KING MD Oct 07, 2021 09:57
[2021-10-07] MEDS ORDERED: HEParin 1000 UNIT/ML (10ML VIAL) FOR BOLUS ONE (10:14)
[2021-10-07] MEDS ORDERED: NITRO DRIP 25000 MCG/D5W 250 ML IV ONE (10:14)
[2021-10-07] MEDS ORDERED: ASPIRIN 325 MG (5 GR) TABLET ONE (10:57)
[2021-10-07] MEDS ORDERED: CLOPIDOGREL 300 MG (PLAVIX) TABLET PO ONE (10:57)
--- NOTE | 2021-10-07 11:14 | Cardiac Cath Report ---
Cardiac Cath Report Physician (s)/Side Framer (s) Physician CORETTA KING MD Pre-Procedure Diagnosis Pre-Procedure Diagnosis: Coronary artery disease Post-Procedure Note Procedure Start Date: Oct 07, 2021 Name of Procedure: Left heart catheterization Stenting to the right coronary artery PCI to the LAD Findings/Procedure Note PROCEDURE NOTE: 80-year-old gentleman with history of coronary artery disease, hypertension, history of stent to the LAD, had an abnormal stress test scheduled for cardiac catheterization possible PTCA. After explaining the procedure to the patient, all pros and cons were explained, all questions were answered. The patient signed the consent and then was placed on the cardiac catheterization laboratory. Groin was prepped SL fashion local anesthesia was used. Sheath placed in the right femoral artery. Pat right and left catheter were used to access the coronary system. Pigtail was used to access the left ventricular cavity. Left ventriculogram was not done, pressure was measured Patient received 5000 units of heparin, EBU guide was advanced to the LAD, BMW wire was advanced to the distal LAD. I attempted for primary stenting to the distal LAD I was unable to advance the stent due to tortuosity in the artery. I was able to advance 3 x 20 trek balloon and did multiple balloon angioplasty then attempted again to advance the stent without success, I advanced a second BMW wire and parked it distally and used it as a chester wire. Another attempt was made without success, I reballooned the distal and mid LAD with the same balloon with excellent results and I was satisfied with the results. FR guide was advanced to the right coronary artery, BMW wire was advanced and parked distally, I was unable to advance the stent in the right coronary artery, I used trek 3 x 20 balloon and did balloon angioplasty then I advanced a resolute [place] 3 x 30 drug-eluting stent to the mid and proximal right coronary artery deployed without difficulties. Excellent results. At the end of the procedure the sheath was removed. Closure device was used FINDINGS: Hemodynamics LV 104/7, end-diastolic pressure of 7 Aorta 108/56 mean of 78 ANATOMY: Left Main is free of obstructive disease Left Anterior Descending has patent stent in the mid LAD distally there is a 1 area of severe stenosis, I was unable to advance a stent to the distal LAD due to tortuosity, I was able to do balloon angioplasty using trek 3 x 20 balloon with excellent results. Left Circumflex has mild to moderate disease nonobstructive disease Right Coronary Artery is dominant artery with multiple segment of severe stenosis successful balloon angioplasty then deployment of resolute [place] 3 x 30 balloon deployed under 15 marixa up to 3.1 mm with excellent results LV Gram was not done, pressure was measured CONCLUSION: 1. Patent stent in the mid LAD with severe stenosis distally successful balloon angioplasty using trek 3 x 20 balloon, excellent results, I was unable to advance a stent to the distal LAD due to tortuosity. 2. Severe stenosis at the mid and proximal right coronary artery, successful balloon angioplasty then deployment of resolute [place] 3 x 30 drug-eluting stent with excellent results 3. Mild irregularity in the circumflex artery 4. Normal left ventricular end-diastolic pressure DISCUSSION AND RECOMMENDATION: Continue to maximize medical therapy Anesthesia Type: Conscious Sedation Estimated blood loss (mL): 35 ml Contrast Amount: 115 ml Total Radiation Dose: 774 mGy Post-Procedure Diagnosis Post-operative diagnosis: Chest pain Coronary artery disease Hypertension Hyperlipidemia CORETTA KING MD Oct 07, 2021 11:14
[2021-10-07] MEDS ORDERED: RT-ALBUTEROL SULF 2.5 MG/3 ML PRE-MIX VIAL IH PRN (11:15)
[2021-10-07] MEDS ORDERED: NON-FORMULARY MEDICATION 1 EA EA (Fluticasone Propionate (Flonase Allergy Relief) 1 SPRAY) NS PRN (11:15)
[2021-10-07] MEDS ORDERED: PATIENT MAY USE OWN MEDS, ALL PO SCH (11:15)
[2021-10-07] MEDS ORDERED: ACETAMINOPHEN 325 MG TABLET PO PRN (11:15)
[2021-10-07 12:03] VITALS: BP 111/72
[2021-10-07] MEDS: NS IV 1000 ML 1,000 ML IV SCH ×2 (12:03→18:09)
[2021-10-07] MEDS ORDERED: FLU QUAD HIGH DOSE 240 MCG/0.7 ML 2021-22 (FLUZONE) IM ONE (13:45)
[2021-10-07 16:00] VITALS: BP 107/76
[2021-10-07 20:00] VITALS: BP 105/59
[2021-10-07] MEDS ORDERED: MELOXICAM 7.5 MG (MOBIC) TABLET PO SCH (21:00)
[2021-10-07] MEDS ORDERED: SIMvastatin 20 MG (ZOCOR) TAB PO SCH (21:00)
[2021-10-07] MEDS ORDERED: TAMSULOSIN 0.4 MG (FLOMAX) CAP PO SCH (21:00)
[2021-10-07] MEDS: RT--FLUTICASONE/SALMETEROL 113-14 (AIRDUO RespiCLICK) IH SCH (22:39)
[2021-10-08 00:03] VITALS: BP 111/60
[2021-10-08 04:00] VITALS: BP 135/67
[2021-10-08 05:51] LABS: HEMATOCRIT 43 % (40-54); HEMOGLOBIN 14.2 g/dL (13.3-17.7); MEAN CORPUSCULAR HEMOGLOBIN 30 pg (25-34); MEAN CORPUSCULAR HGB CONC 33 g/dL (32-36); MEAN CORPUSCULAR VOLUME 89 fL (80-99); MEAN PLATELET VOLUME 10.5 fL (9.0-12.2); PLATELET COUNT 197 10^3/uL (130-400); WHITE BLOOD COUNT 11.3 10^3/uL (4.3-11.0)
[2021-10-08 06:13] LABS: CALCIUM 8.2 MG/DL (8.5-10.1)
[2021-10-08] MEDS ORDERED: CLOP75TA28 PO (06:13)
--- NOTE | 2021-10-08 06:13 | Discharge Inst-Post CATH ---
Discharge Inst-CATH/EP Problems Reviewed?: Yes Post Cardiac Cath/EP D/C Inst Follow Up/Plan Appointment with Dr Quiles in 2-4 weeks <b>CARDIAC CATH/EP PROCEDURE DISCHARGE INSTRUCTIONS</b> ACTIVITY * Go Home directly and rest. * Limit activity of the leg (or wrist if it was used) for 7 days including aerobics, swimming, jogging, bicycling, etc. * Restrict stair-climbing for 7 days if possible, if not, climb up with your non-cath leg, then bring together on the same step. * Avoid lifting, pushing, pulling or excessive movement of the affected extremity for 7 days. * Customary sexual activity may be resumed after 2 days-use caution not to use a position that strains or causes pain to the affected extremity. * No driving for 24 hours. * NO SMOKING. * Avoid straining for bowel movements for 7 days. * Gentle walking on level ground is allowed. * Returning to work will depend on the type of procedure and the results. Your doctor will discuss this with you. CALL YOUR DOCTOR FOR ANY OF THE FOLLOWING: *If bleeding from the puncture site occurs- Apply gentle pressure to site with clean cloth and call your doctor or EMS. * If a knot or lump forms under the skin, increases in size, or causes pain. * If bruising appears to be worsening or moving further down your leg instead of disappearing. * Temperature above 101 F. CARE OF YOUR GROIN INCISION; * Bruising or purple discoloration of the skin near the puncture site is common. * You may shower only, no bathtub bathing for 5 days. Be careful to avoid slipping as your leg may feel stiff. * If a closure device was used on your femoral artery, please see the attached guide regarding care of the device and your leg. * Leave dressing on FOR 24 hours. CARE OF YOUR WRIST INCISION; * Bruising or purple discoloration of the skin near the puncture site is common. * You may shower. * DO NOT submerge wrist. * Leave dressing on FOR 24 hours. CORETTA QUILES MD Oct 08, 2021 06:13
[2021-10-08 06:17] LABS: CREATININE SERUM 0.96 MG/DL (0.60-1.30)
[2021-10-08 07:45] VITALS: BP 119/65
--- NOTE | 2021-10-08 08:17 | Cardiology Progress Note ---
Subjective Date Seen by Provider: Oct 08, 2021 Time Seen by Provider: 08:15 Subjective/Events-last exam Patient is laying down in bed, feeling well, groin is healing well. Review of Systems General: No Chills, No Night Sweats, No Fatigue, No Malaise, No Appetite, No Other HEENT: No Head Aches, No Visual Changes, No Eye Pain, No Ear Pain, No Dysphasia, No Sinus Congestion, No Post Nasal Drip, No Sore Throat, No Other Pulmonary: No Dyspnea, No Cough, No Pleuritic Chest Pain, No Other Cardiovascular: No: Chest Pain, Palpitations, Orthopnea, Paroxysmal Noc. Dyspnea, Edema, Lt Headedness, Other Objective-Cardiology Exam Last Set of Vital Signs Vital Signs 10/08/21 07:45 Temp 36.5 Pulse 70 Resp 21 B/P (MAP) 119/65 (83) Pulse Ox 93 O2 Delivery Room Air I&O Intake and Output 10/08/21 00:00 Intake Total 1140 ml Output Total 850 ml Balance 290 ml Intake Oral 1140 ml Output Urine Total 850 ml General: Alert, Oriented X3, Cooperative HEENT: Atraumatic, PERRLA Neck: Supple, No JVD, No Thyromegaly Lungs: Clear to Auscultation, Normal Air Movement Heart: Regular Rate, Normal S1, Normal S2, No Murmurs Abdomen: Normal Bowel Sounds, Soft, No Tenderness, No Hepatosplenomegaly, No Masses Extremities: No Clubbing, No Cyanosis, No Edema, Normal Pulses, No Tenderness/Swelling Skin: No Rashes, No Breakdown, No Significant Lesion Neuro: Normal Gait, Normal Speech, Strength at 5/5 X4 Ext, Normal Tone, Sensation Intact Psych/Mental Status: Mental Status NL, Mood NL Results Lab Laboratory Tests 10/08/21 05:15 A/P-Cardiology Admission Diagnosis Coronary artery disease Hypertension Hyperlipidemia Diabetes mellitus Assessment/Plan Coronary artery disease, status post balloon angioplasty to the vein graft to the obtuse marginal: 1. Patent stent in the mid LAD with severe stenosis distally successful balloon angioplasty using trek 3 x 20 balloon, excellent results, I was unable to advance a stent to the distal LAD due to tortuosity. 2. Severe stenosis at the mid and proximal right coronary artery, successful balloon angioplasty then deployment of resolute [place] 3 x 30 drug-eluting stent with excellent results 3. Mild irregularity in the circumflex artery 4. Normal left ventricular end-diastolic pressure Hypertension, restart home medication monitor blood pressure Hyperlipidemia, monitor lipids Diabetes mellitus, educated on holding Metformin for 48 hours Patient was educated on the importance of taking aspirin and Plavix CORETTA KING MD Oct 08, 2021 08:16
[2021-10-08] MEDS ORDERED: ASPIRIN E.C. 81 MG (ECOTRIN) TAB PO SCH (09:00)
[2021-10-08] MEDS ORDERED: CLOPIDOGREL 75 MG (PLAVIX) TABLET PO SCH (09:00)
[2021-10-08] MEDS ORDERED: VITAMIN D3 25 MCG (1,000 UNITS) TABLET PO SCH (09:00)
[2021-10-08] MEDS ORDERED: NON-FORMULARY MEDICATION 1 EA EA (Cetirizine HCl (Zyrtec) 10 MG) PO SCH (09:00)
[2021-10-08] MEDS: RT--FLUTICASONE/SALMETEROL 113-14 (AIRDUO RespiCLICK) IH SCH (09:26)
[2021-10-08 09:55] VITALS: BP 119/65
== END 2021-10-08 09:55 | disposition home or self-care (01) ==
LOC: CATH 09:00 → CSD 11:28 → CATH 10-08 09:55
PROVIDERS: ATTEND Internal Medicine Cardiovascular Disease
DX: I25.10 Atherosclerotic heart disease of native coronary artery without angina pectoris (principal); R94.39 Abnormal result of other cardiovascular function study; R91.1 Solitary pulmonary nodule; I73.9 Peripheral vascular disease, unspecified; I65.23 Occlusion and stenosis of bilateral carotid arteries; I10 Essential (primary) hypertension; G89.29 Other chronic pain; M54.9 Dorsalgia, unspecified; J44.9 Chronic obstructive pulmonary disease, unspecified; E78.5 Hyperlipidemia, unspecified; F17.210 Nicotine dependence, cigarettes, uncomplicated; Z79.82 Long term (current) use of aspirin; Z79.899 Other long term (current) drug therapy; Z82.49 Family history of ischemic heart disease and other diseases of the circulatory system; Z80.9 Family history of malignant neoplasm, unspecified
CPT/HCPCS: 71045; 80048; 80053; 80061; 85027 ×2; 85610; 85730; 87081; 92921; 93005; 93458; 94640; 94760; C1725; C1760; C1769; C1874 ×2; C1887 ×2; C1894; C9600; 36415

== ENCOUNTER → 2021-12-30 | Outpatient (CLI) | payer MEDICARE, BC, OTHER ==
[~2021-12-30] MED LIST changes: +CLOP75TA28 PO; -HEParin (CATH LAB) 2,000 ML IV ONE; -LIDOCAINE 1% INJ 20 ML VIAL ONE; -NS IV 1000 ML 1,000 ML IV SCH; -NS IV 1000 ML 1,000 ML ONE
[2021-12-30 09:31] LABS: BASOPHILS # (AUTO) 0.1 10^3/uL (0.0-0.1); BASOPHILS % (AUTO) 1 % (0-10); EOSINOPHILS # (AUTO) 0.3 10^3/uL (0.0-0.3); EOSINOPHILS % (AUTO) 3 % (0-10); HEMATOCRIT 46 % (40-54); LYMPHOCYTES # (AUTO) 3.2 10^3/uL (1.0-4.0); LYMPHOCYTES % (AUTO) 30 % (12-44); MEAN CORPUSCULAR HEMOGLOBIN 29 pg (25-34); MEAN CORPUSCULAR HGB CONC 32 g/dL (32-36); MEAN CORPUSCULAR VOLUME 89 fL (80-99); MONOCYTES # (AUTO) 1.1 10^3/uL (0.0-1.0); MONOCYTES % (AUTO) 10 % (0-12); NEUTROPHILS # (AUTO) 6.2 10^3/uL (1.8-7.8); NEUTROPHILS % (AUTO) 57 % (42-75); PLATELET COUNT 228 10^3/uL (130-400); WHITE BLOOD COUNT 10.9 10^3/uL (4.3-11.0)
[2021-12-30 09:53] LABS: BILIRUBIN,TOTAL 0.6 MG/DL (0.1-1.0); CREATININE SERUM 1.07 MG/DL (0.60-1.30); POTASSIUM 4.1 MMOL/L (3.6-5.0); TOTAL PROTEIN 6.8 GM/DL (6.4-8.2)
== END ==
LOC: LAB 09:05
DX: E11.9 Type 2 diabetes mellitus without complications (principal); N40.0 Benign prostatic hyperplasia without lower urinary tract symptoms; E78.2 Mixed hyperlipidemia; R53.83 Other fatigue
CPT/HCPCS: 36415; 80053; 80061; 83036; 84153; 85025

== ENCOUNTER → 2022-12-17 | Outpatient (CLI) | payer MEDICARE, BC, OTHER ==
[~2022-12-17] MED LIST changes: +ALBU8.5H6 IH; -RT-ALBUINH IH
[2022-12-17 08:48] LABS: ALBUMIN 3.9 GM/DL (3.2-4.5); BILIRUBIN,TOTAL 0.6 MG/DL (0.1-1.0); CALCIUM 9.5 MG/DL (8.5-10.1); CREATININE SERUM 1.02 MG/DL (0.60-1.30); TOTAL PROTEIN 6.9 GM/DL (6.4-8.2)
== END ==
LOC: LAB 08:04
PROVIDERS: ATTEND Family Medicine
DX: E78.2 Mixed hyperlipidemia (principal); I65.29 Occlusion and stenosis of unspecified carotid artery; I10 Essential (primary) hypertension; R07.9 Chest pain, unspecified; R06.09 Other forms of dyspnea
CPT/HCPCS: 36415; 80053; 80061

== ENCOUNTER 2023-04-09 10:41 | Inpatient (IN) | payer MEDICARE, BC, OTHER ==
[2023-04-09] VITALS (9 sets, daily range): BP systolic 99–123; BP diastolic 57–79
[~2023-04-09] VITALS: Ht 175 cm; Wt 81.0 kg
[2023-04-09] MEDS ORDERED: fentaNYL INJ 100 MCG/2 ML AMP IVP STA (11:36)
[2023-04-09 11:40] LABS: BASOPHILS # (AUTO) 0.1 10^3/uL (0.0-0.1); BASOPHILS % (AUTO) 0 % (0-10); EOSINOPHILS % (AUTO) 0 % (0-10); HEMATOCRIT 45 % (40-54); HEMOGLOBIN 15.1 g/dL (13.3-17.7); LYMPHOCYTES # (AUTO) 1.4 10^3/uL (1.0-4.0); LYMPHOCYTES % (AUTO) 4 % (12-44); MEAN CORPUSCULAR HEMOGLOBIN 29 pg (25-34); MEAN CORPUSCULAR HGB CONC 34 g/dL (32-36); MEAN CORPUSCULAR VOLUME 85 fL (80-99); MEAN PLATELET VOLUME 10.9 fL (9.0-12.2); MONOCYTES # (AUTO) 2.5 10^3/uL (0.0-1.0); MONOCYTES % (AUTO) 8 % (0-12); NEUTROPHILS # (AUTO) 28.5 10^3/uL (1.8-7.8); NEUTROPHILS % (AUTO) 87 % (42-75); PLATELET COUNT 244 10^3/uL (130-400)
[2023-04-09 11:43] LABS: WHITE BLOOD COUNT 32.9 10^3/uL (4.3-11.0)
[2023-04-09] MEDS ORDERED: NS IV 1000 ML 1,000 ML IV SCH (11:45)
[2023-04-09] MEDS ORDERED: ONDANSETRON 4 MG/2 ML (SDV) Z0FRAN IVP ONE (11:45)
[2023-04-09 11:46] LABS: ALBUMIN 3.8 GM/DL (3.2-4.5); INR 1.4 (0.8-1.4); POTASSIUM 4.1 MMOL/L (3.6-5.0); PROTHROMBIN TIME PATIENT 17.1 SEC (12.2-14.7)
--- NOTE | 2023-04-09 11:46 | ED Abdominal Pain ---
General Chief Complaint: Abdominal/GI Problems Stated Complaint: RIGHT AB PAIN Nursing Triage Note: pt presents to ed via pov from home accompanied by adult son with complaints of r lower abdominal pain and n/v x 2 days. pt reports increase in pain with inspiration, walking, position changes. pt reports constipation as well. pt reports difficulty with balance but has been going on a "while." History of Present Illness Date Seen by Provider: Apr 09, 2023 Time Seen by Provider: 11:05 Initial Comments 82 year old male presents with RLQ pain 07/12, present for 2 days, getting worse. Mild nausea, vomited once today and once or twice yesterday. Has not eaten solid food today, last at yesterday evening and no vomiting after eating. Vomited once this morning, reports more phlegm and frothy; chronic productive cough, smoked since age 12. Hernia surgery in past, he and son report gallbladder and appendix still present. He has had previous cardiac surgery with stent placement, denies being on anticoagulants, and back surgery. Since his back surgery he has had chronic balance issues and uses a cane for ambulation. Reports getting unbalanced in bathroom this morning, but not worse than usual for him. Temp 37.5 Timing/Duration: 2-3 Days Severity/Quality: Severe (07/12) Location: RLQ, Epigastric Radiation: No Radiation Modifying Factors: Improves With Lying down, Improves With Resting Associated Symptoms: No Back Pain, No Chest Pain, No Diaphoresis, No Fever/Chills, No Fatigue, No Headache, No Heartburn; Nausea/Vomiting; No Rash, No Shortness of Air, No Swelling/Mass in Abdomen, No Syncope, No Weakness Allergies and Home Medications Allergies Coded Allergies: No Known Drug Allergies (Unverified , 05/29/13) Patient Home Medication List Home Medication List Reviewed: Yes Acetaminophen (Tylenol) 325 Mg Tablet, 650 MG PO Q6H PRN for PAIN-MILD (1-4), (Reported) Entered as Reported by: SHAR ASTORGA on 10/07/21811 Albuterol Sulfate (Ventolin Hfa) 1 Puff Puff, 2 PUFF IH Q4H PRN for SHORTNESS OF BREATH, (Reported) Entered as Reported by: SHAR ASTORGA on 10/07/21811 Aspirin (Aspirin EC) 81 Mg Tablet.dr, 81 MG PO HS, (Reported) Entered as Reported by: SHAR ASTORGA on 10/07/21811 Cetirizine HCl (Zyrtec) 10 Mg Tablet, 10 MG PO DAILY, (Reported) Entered as Reported by: SHAR ASTORGA on 10/07/21811 Cholecalciferol (Vitamin D3) (Vitamin D3) 25 Mcg Tablet, 25 MCG PO DAILY, (Reported) Entered as Reported by: SHAR ASTORGA on 10/07/21811 Clopidogrel Bisulfate (Clopidogrel) 75 Mg Tablet, 75 MG PO DAILY Prescribed by: CORETTA KING on 10/08/21612 Fluticasone Propion/Salmeterol (Wixela 250-50 Inhub) 1 Each Blst.w.dev, 1 EACH IH BID, (Reported) Entered as Reported by: SHAR ASTORGA on 10/07/21811 Fluticasone Propionate (Flonase Allergy Relief) 9.9 Ml [place].susp, 1 SPRAY NS DAILY PRN for CONGESTION, (Reported) Entered as Reported by: SHAR ASTROGA on 10/07/21811 Hydrochlorothiazide (Hydrochlorothiazide) 25 Mg Tablet, 25 MG PO HS, (Reported) Entered as Reported by: SHAR ASTORGA on 10/07/21811 Lovastatin (Lovastatin) 40 Mg Tablet, 40 MG PO HS, (Reported) Entered as Reported by: SHAR ASTORGA on 10/07/21811 Meloxicam (Mobic) 15 Mg Tablet, 15 MG PO HS, (Reported) Entered as Reported by: SHAR ASTORGA on 10/07/21811 Naproxen Sodium (Aleve) 220 Mg Tablet, 220 MG PO BID PRN for PAIN-MILD (1-4), (Reported) Entered as Reported by: SHAR ASTORGA on 10/07/21811 Tamsulosin HCl (Flomax) 0.4 Mg Cap, 0.4 MG PO HS, (Reported) Entered as Reported by: SHAR ASTORGA on 10/07/21811 Vit A/Vit C/Vit E/Zinc/Copper (Preservision Areds Tablet) 1 Each Tablet, 1 EACH PO HS, (Reported) Entered as Reported by: SHAR ASTORGA on 10/07/21811 Review of Systems Review of Systems Constitutional: no symptoms reported, see HPI EENTM: No Symptoms Reported, See HPI Respiratory: See HPI, Cough (chronic), Shortness of Air (chronic, no worse today); Denies Wheezing Cardiovascular: No Symptoms Reported, See HPI Gastrointestinal: See HPI, Abdominal Pain; Denies Blood Streaked Stools; Constipated (small stool yesterday morning); Denies Diarrhea; Nausea, Poor Appetite, Poor Fluid Intake; Denies Rectal Bleeding; Vomiting Genitourinary: No Symptoms Reported, See HPI; Denies Flank Pain Musculoskeletal: see HPI, back pain (chronic) Skin: no symptoms reported, see HPI All Other Systems Reviewed Negative Unless Noted: Yes Past [place]-Maiedw Hx Patient Social History Tobacco Use?: Yes Tobacco type used: Cigarettes Smoking Status: Current Everyday Smoker Substance use?: No Alcohol Use?: No Pt feels they are or have been: No Immunizations Up To Date Tetanus Booster (TDap): Less than 5yrs Past Medical History Surgery/Hospitalization HX: sx: cardiac stents x 2, back sx, hernia repair pmh: high chol, htn, Orthopedic COPD High Cholesterol Loss of Vision: Bilateral Hearing Impairment: Bilateral Hearing Aide Adverse Reaction/Blood Tranf: No Family Medical History Reviewed Nursing Family Hx Abdominal aortic aneurysm 09 BROTHER ( OF BRAIN ANEURISM) Alcoholism 03 FATHER 09 BROTHER Cancer 09 BROTHER ( OF THROAT CA) 09 BROTHER ( OF PROSTATE CA) 09 BROTHER (BONE CANCER) Congestive heart failure 03 FATHER (FATHER AT 98 OF CHF) Family history: Arthritis 03 FATHER 03 MOTHER 09 BROTHER Family history: Diabetes mellitus 09 BROTHER Myocardial infarction 03 MOTHER (MOTHER OF HI) No Family History of: Family history: Asthma Family history: Thyroid disorder Seizure disorder Stroke Physical Exam Vital Signs Vital Signs - First Documented 04/09/23 10:50 Temp 37.5 Pulse 99 Resp 22 B/P (MAP) 108/69 (82) Pulse Ox 94 Capillary Refill : Less Than 3 Seconds Height/Weight/BMI Height: 5'9.00" Weight: 171lbs. 0.0oz. 77.998988mb; 26.00 BMI Method: General Appearance: WD/WN, mild distress (secondary to pain) HEENT: TMs normal, pharynx normal Neck: non-tender, full range of motion, supple, normal inspection Respiratory: chest non-tender, no respiratory distress, no accessory muscle use, rhonchi Cardiovascular: normal peripheral pulses, regular rate, rhythm, no edema Gastrointestinal: normal bowel sounds, soft; No distended; rebound, tenderness (epigastric and RLQ) Extremities: normal range of motion, non-tender, normal inspection, no pedal edema, normal capillary refill Neurologic/Psychiatric: no motor/sensory deficits, alert, normal mood/affect, oriented x 3 Skin: normal color, warm/dry Progress/Results/Core Measures Results/Orders Lab Results Laboratory Tests Test 04/09/23 10:54 04/09/23 11:40 Range/Units White Blood Count 32.9 *H 4.3-11.0 10^3/uL Red Blood Count 5.29 4.30-5.52 10^6/uL Hemoglobin 15.1 13.3-17.7 g/dL Hematocrit 45 40-54 % Mean Corpuscular Volume 85 80-99 fL Mean Corpuscular Hemoglobin 29 25-34 pg Mean Corpuscular Hemoglobin Concent 34 32-36 g/dL Red Cell Distribution Width 14.5 10.0-14.5 % Platelet Count 244 130-400 10^3/uL Mean Platelet Volume 10.9 9.0-12.2 fL Immature Granulocyte % (Auto) 1 % Neutrophils (%) (Auto) 87 H 42-75 % Lymphocytes (%) (Auto) 4 L 12-44 % Monocytes (%) (Auto) 8 0-12 % Eosinophils (%) (Auto) 0 0-10 % Basophils (%) (Auto) 0 0-10 % Neutrophils # (Auto) 28.5 H 1.8-7.8 10^3/uL Lymphocytes # (Auto) 1.4 1.0-4.0 10^3/uL Monocytes # (Auto) 2.5 H 0.0-1.0 10^3/uL Eosinophils # (Auto) 0.0 0.0-0.3 10^3/uL Basophils # (Auto) 0.1 0.0-0.1 10^3/uL Immature Granulocyte # (Auto) 0.5 H 0.0-0.1 10^3/uL Neutrophils % (Manual) 83 % Lymphocytes % (Manual) 3 % Monocytes % (Manual) 7 % Eosinophils % (Manual) 0 % Basophils % (Manual) 0 % Band Neutrophils 7 % Blood Morphology Comment NORMAL Prothrombin Time 17.1 H 12.2-14.7 SEC INR Comment 1.4 0.8-1.4 Activated Partial Thromboplast Time 37 H 24-35 SEC Sodium Level 136 135-145 MMOL/L Potassium Level 4.1 3.6-5.0 MMOL/L Chloride Level 104 98-107 MMOL/L Carbon Dioxide Level 21 21-32 MMOL/L Anion Gap 11 5-14 MMOL/L Blood Urea Nitrogen 20 H 7-18 MG/DL Creatinine 0.96 0.60-1.30 MG/DL Estimat Glomerular Filtration Rate 80 BUN/Creatinine Ratio 21 Glucose Level 132 H 70-105 MG/DL Calcium Level 9.3 8.5-10.1 MG/DL Corrected Calcium 9.5 8.5-10.1 MG/DL Total Bilirubin 1.3 H 0.1-1.0 MG/DL Aspartate Amino Transf (AST/SGOT) 14 5-34 U/L Alanine Aminotransferase (ALT/SGPT) 8 0-55 U/L Alkaline Phosphatase 65 40-136 U/L C-Reactive Protein High Sensitivity 22.15 H 0.00-0.50 MG/DL B-Type Natriuretic Peptide 155.1 H <100.0 PG/ML Total Protein 6.9 6.4-8.2 GM/DL Albumin 3.8 3.2-4.5 GM/DL Urine Color ORANGE Urine Clarity CLEAR Urine pH 6.0 5-9 Urine Specific [place] >=1.030 1.016-1.022 Urine Protein 1+ H NEGATIVE Urine Glucose (UA) NEGATIVE NEGATIVE Urine Ketones NEGATIVE NEGATIVE Urine Nitrite POSITIVE H NEGATIVE Urine Bilirubin 1+ H NEGATIVE Urine Urobilinogen 4.0 < = 1.0 MG/DL Urine Leukocyte Esterase NEGATIVE NEGATIVE Urine RBC (Auto) NEGATIVE NEGATIVE Urine RBC NONE /HPF Urine WBC 0-2 /HPF Urine Squamous Epithelial Cells 0-2 /HPF Urine Crystals NONE /LPF Urine Bacteria FEW H /HPF Urine Casts NONE /LPF Urine Mucus MODERATE H /LPF Urine Culture Indicated YES My Orders Orders - ROEL NANCE [facility] [place] (04/09/23 11:33) Cbc With Automated Diff (04/09/23 11:33) Comprehensive Metabolic Panel (04/09/23 11:33) Hs C Reactive Protein (04/09/23 11:33) Protime With Inr (04/09/23 11:33) Partial Thromboplastin Time (04/09/23 11:33) Ua Culture If Indicated (04/09/23 11:33) Chest 1 View, Ap/Pa Only (04/09/23 11:33) Ed Iv/Invasive Line Start (04/09/23 11:33) Ns Iv 1000 Ml (Sodium Chloride 0.9%) (04/09/23 11:45) Ondansetron Injection (Zofran Injectio (04/09/23 11:45) Ct Abd/Pelv W (Appendicitis) (04/09/23 11:36) Fentanyl Inj (Sublimaze Injection) (04/09/23 11:36) Manual Differential (04/09/23 10:54) Iohexol Injection (Omnipaque 350 Mg/Ml 1 (04/09/23 12:00) Received Contrast (Hold Metformin- Contr (04/09/23 12:00) Ns (Ivpb) (Sodium Chloride 0.9% Ivpb Bag (04/09/23 12:00) Urine Culture (04/09/23 11:40) Ceftriaxone Iv/Im (Rocephin Iv/Im) (04/09/23 12:15) Medications Given in ED Current Medications Medications Dose Ordered Sig/Anand Route Start Time Stop Time Status Last Admin Dose Admin Ceftriaxone Sodium 1000 mg/ Sodium Chloride 50 ml @ 100 mls/hr ONCE ONCE IV 04/09/23 12:15 04/09/23 12:44 DC 04/09/23 12:17 100 MLS/HR Iohexol 100 ml ONCE ONCE IV 04/09/23 12:00 04/09/23 12:03 DC 04/09/23 12:18 80 ML Ondansetron HCl 4 mg ONCE ONCE IVP 04/09/23 11:45 04/09/23 11:46 DC 04/09/23 11:44 4 MG Sodium Chloride 100 ml ONCE ONCE IV 04/09/23 12:00 04/09/23 12:03 DC 04/09/23 12:18 100 ML Vital Signs/I&O 04/09/23 10:50 Temp 37.5 Pulse 99 Resp 22 B/P (MAP) 108/69 (82) Pulse Ox 94 2 Blood Pressure Mean: 82 Progress Progress Note : Time: 11:05 Progress Note patient assessed, will check labs, NS 1 L IV, Fentanyl 25 mcg for pain, Zofran 4 mg IV for n/v. Chest x-ray and CT abd/pelvis for possibly appendicitis. 1135 WBC 33, UTI noted on UA. Will proceed with CT, Creatinine 0.96. Alerted Dr. Bernardo, will await CT results. 1210 CT does not show evidence of appendicitis, shows gallbladder wall thickening and reactive transverse colon changes. CT reviewed by Dr. Bernardo he will come to see the patient. [address] results with patient and his son. Explained that a general surgeon will be in to see him. He denied request for further pain medication or other needs at this time. Does report the nausea has improved since receiving the Zofran. 1250 Dr Bernardo here to see patient, plan to OR for Cholecystectomy. Patient and son agreeable. No further requests at this time. RN will obtain consent. 1340 OR staff her to assume care of patient, to OR. Diagnostic Imaging Diagonstic Imaging: Xray Plain Films/CT/US/NM/MRI: chest Comments NAME: ELLEN PATEL [facility] REC#: [id number] PT STATUS: REG ER : 1940 PHYSICIAN: ROEL NANCE ADMIT DATE: 04/09/23/ER Draft Date of Exam:04/09/23 CHEST 1 VIEW, AP/PA ONLY EXAMINATION: Chest 1 view HISTORY: Cough COMPARISON: 10/07/2021. FINDINGS: The lungs are clear without edema or pneumonia. No pleural effusion or pneumothorax. Heart size is normal. IMPRESSION: 1. Clear lungs. Dictated on workstation # [id number] Dict: 04/09/23 1221 Trans: 04/09/23 1223 [facility] [id number] Interpreted by: NAZ CENTENO MD Electronically signed by: Diagonstic Imaging: CT Plain Films/CT/US/NM/MRI: abdomen, pelvis Comments NAME: ELLEN PATEL [facility] REC#: [id number] PT STATUS: REG ER : 1940 PHYSICIAN: ROEL NANCE ADMIT DATE: 04/09/23/ER Draft Date of Exam:04/09/23 CT ABD/PELV W (APPENDICITIS) EXAMINATION: CT abdomen and pelvis with intravenous contrast. TECHNIQUE: Multiple contiguous axial images were obtained through the abdomen and pelvis after the uneventful administration of intravenous contrast. All CT scans use one or more of the following dose optimizing techniques: automated exposure control, MA and/or KvP adjustment based on patient size and exam type or iterative reconstruction. HISTORY: Right lower quadrant pain COMPARISON: 04/09/2016 FINDINGS: Limited views of the lower thorax show paraseptal emphysema. The liver is normal without focal lesion. There is no biliary ductal dilation. Gallbladder is distended and the wall is thickened with pericholecystic fluid. Pancreas is normal. Spleen is normal. Adrenal glands are normal. A left renal cyst has decreased in size. There are a few peripheral calcifications. There are nonobstructing stones in the right kidney. There is no hydronephrosis. Urinary bladder is normal. There is wall thickening of the hepatic flexure of the colon adjacent to the gallbladder. There is no fat plane between the colon and the gallbladder. No free fluid or air. No abdominal or pelvic lymphadenopathy. Aorta is atherosclerotic without aneurysm. There are no suspicious osseus lesions. IMPRESSION: 1. Distended gallbladder with wall thickening and pericholecystic fluid. The gallbladder directly abuts the hepatic flexure of the colon which is also thickened. There is no fat plane between the colon and the gallbladder. Findings favored to represent acute cholecystitis with reactive inflammation of the colon. Dictated on workstation # [id number] Dict: 04/09/23 1222 Trans: 04/09/23 1232 [facility] [id number] Interpreted by: NAZ CENTENO MD Electronically signed by: Reviewed: Reviewed by Me, Reviewed/Discussed (with Dr. Bernardo) Departure Impression Primary Impression: Abdominal pain Qualified Codes: R10.31 - Right lower quadrant pain Additional Impressions: Tobacco abuse CAD (coronary artery disease) Qualified Codes: I25.10 - Atherosclerotic heart disease of [place] coronary artery without angina pectoris COPD (chronic obstructive pulmonary disease) Qualified Codes: J43.9 - Emphysema, unspecified Cholecystitis Disposition: ADMITTED INPATIENT Condition: Stable Admissions Decision to Admit/Date: Apr 09, 2023 Time/Decision to Admit Time: 13:20 Departure-Patient Inst. Referrals: SURYA MARSH MD (PCP/Family) Primary Care Physician Copy Copies To 1: CORETTA KING MD, AMY ARNP Apr 09, 2023 11:46
[2023-04-09 11:47] LABS: CALCIUM 9.3 MG/DL (8.5-10.1)
[2023-04-09 11:47] LABS: CLARITY,URINE CLEAR; COLOR,URINE ORANGE; GLUCOSE, URINE (UA) NEGATIVE (NEGATIVE); KETONES,URINE NEGATIVE (NEGATIVE); LEUKOCYTE ESTERASE ,URINE NEGATIVE (NEGATIVE); NITRITE,URINE POSITIVE (NEGATIVE); PROTEIN,URINE 1+ (NEGATIVE)
[2023-04-09 11:48] LABS: TOTAL PROTEIN 6.9 GM/DL (6.4-8.2)
[2023-04-09 11:50] LABS: BILIRUBIN,TOTAL 1.3 MG/DL (0.1-1.0)
[2023-04-09 11:52] LABS: CREATININE SERUM 0.96 MG/DL (0.60-1.30)
[2023-04-09 11:59] LABS: BACTERIA,URINE FEW /HPF; BILIRUBIN,URINE 1+ (NEGATIVE); SQUAMOUS EPITHELIAL CELL,UR 0-2 /HPF; WBC,URINE 0-2 /HPF
[2023-04-09 12:00] LABS: BAND NEUTROPHILS 7 %; BASOPHILS % (MANUAL) 0 %; EOSINOPHILS % (MANUAL) 0 %; LYMPHOCYTES % (MANUAL) 3 %; MONOCYTES % (MANUAL) 7 %; NEUTROPHILS % (MANUAL) 83 %; RBC MORPH NORMAL
[2023-04-09] MEDS ORDERED: HOLD METFORMIN - RECEIVED CONTRAST 20 ML VIAL IV SCH (12:00)
[2023-04-09] MEDS ORDERED: NS 100 ML (IVPB) BAG IV ONE (12:00)
[2023-04-09] MEDS ORDERED: IOHEXOL 350 MG/ML 100 ML (OMNIPAQUE 350) VIAL IV ONE (12:00)
[2023-04-09] MEDS ORDERED: cefTRIAXone IV/IM 1,000 MG in NS (IVPB) 50 ML IV ONE (12:15)
--- NOTE | 2023-04-09 12:23 | Diagnostic Imaging Report ---
EXAMINATION: Chest 1 view HISTORY: Cough COMPARISON: 10/07/2021. FINDINGS: The lungs are clear without edema or pneumonia. No pleural effusion or pneumothorax. Heart size is normal. IMPRESSION: 1. Clear lungs. Dictated by: Dictated on workstation # [id number]
--- NOTE | 2023-04-09 12:33 | Diagnostic Imaging Report ---
EXAMINATION: CT abdomen and pelvis with intravenous contrast. TECHNIQUE: Multiple contiguous axial images were obtained through the abdomen and pelvis after the uneventful administration of intravenous contrast. All CT scans use one or more of the following dose optimizing techniques: automated exposure control, MA and/or KvP adjustment based on patient size and exam type or iterative reconstruction. HISTORY: Right lower quadrant pain COMPARISON: 04/09/2016 FINDINGS: Limited views of the lower thorax show paraseptal emphysema. The liver is normal without focal lesion. There is no biliary ductal dilation. Gallbladder is distended and the wall is thickened with pericholecystic fluid. Pancreas is normal. Spleen is normal. Adrenal glands are normal. A left renal cyst has decreased in size. There are a few peripheral calcifications. There are nonobstructing stones in the right kidney. There is no hydronephrosis. Urinary bladder is normal. There is wall thickening of the hepatic flexure of the colon adjacent to the gallbladder. There is no fat plane between the colon and the gallbladder. No free fluid or air. No abdominal or pelvic lymphadenopathy. Aorta is atherosclerotic without aneurysm. There are no suspicious osseus lesions. IMPRESSION: 1. Distended gallbladder with wall thickening and pericholecystic fluid. The gallbladder directly abuts the hepatic flexure of the colon which is also thickened. There is no fat plane between the colon and the gallbladder. Findings favored to represent acute cholecystitis with reactive inflammation of the colon. Dictated by: Dictated on workstation # [id number]
--- NOTE | 2023-04-09 13:30 | Consultation - Surgery ---
History of Present Illness History of Present Illness Patient Consulted On(jah/time) 04/09/23 13:24 Time Seen by Provider: 13:01 History of Present Illness Surgery asked to consult regarding RUQ pain. HPI per ED: 82 year old male presents with RLQ pain 07/12, present for 2 days, getting worse. Mild nausea, vomited once today and once or twice yesterday. Has not eaten solid food today, last at yesterday evening and no vomiting after eating. Vomited once this morning, reports more phlegm and frothy; chronic productive cough, smoked since age 12. Hernia surgery in past, he and son report gallbladder and appendix still present. He has had previous cardiac surgery with stent placement, denies being on anticoagulants, and back surgery. Since his back surgery he has had chronic balance issues and uses a cane for ambulation. Reports getting unbalanced in bathroom this morning, but not worse than usual for him. Temp 37.5 Timing/Duration: 2-3 Days Severity/Quality: Severe (07/12) Location: RLQ, Epigastric Radiation: No Radiation Modifying Factors: Improves With Lying down, Improves With Resting Associated Symptoms: No Back Pain, No Chest Pain, No Diaphoresis, No Fever/Chills, No Fatigue, No Headache, No Heartburn; Nausea/Vomiting; No Rash, No Shortness of Air, No Swelling/Mass in Abdomen, No Syncope, No Weakness When I spoke to pt he stated the pain started 2 days and was anywhere from 7-10 out of 10. He has never had pain like this before and not had pain with foods before. Allergies and Home Medications Allergies Coded Allergies: No Known Drug Allergies (Unverified , 05/29/13) Patient Home Medication List Home Medication List Reviewed: Yes Acetaminophen (Tylenol) 325 Mg Tablet, 650 MG PO Q6H PRN for PAIN-MILD (1-4), (Reported) Entered as Reported by: SHAR ASTORGA on 10/07/21811 Albuterol Sulfate (Ventolin Hfa) 1 Puff Puff, 2 PUFF IH Q4H PRN for SHORTNESS OF BREATH, (Reported) Entered as Reported by: SHAR ASTORGA on 10/07/21811 Aspirin (Aspirin EC) 81 Mg Tablet.dr, 81 MG PO HS, (Reported) Entered as Reported by: SHAR ASTORGA on 10/07/21811 Cetirizine HCl (Zyrtec) 10 Mg Tablet, 10 MG PO DAILY, (Reported) Entered as Reported by: SHAR ASTORGA on 10/07/21811 Cholecalciferol (Vitamin D3) (Vitamin D3) 25 Mcg Tablet, 25 MCG PO DAILY, (Reported) Entered as Reported by: SHAR ASTORGA on 10/07/21811 Clopidogrel Bisulfate (Clopidogrel) 75 Mg Tablet, 75 MG PO DAILY Prescribed by: CORETTA KING on 10/08/21612 Fluticasone Propion/Salmeterol (Wixela 250-50 Inhub) 1 Each Blst.w.dev, 1 EACH IH BID, (Reported) Entered as Reported by: SHAR ASTORGA on 10/07/21811 Fluticasone Propionate (Flonase Allergy Relief) 9.9 Ml [place].susp, 1 SPRAY NS DAILY PRN for CONGESTION, (Reported) Entered as Reported by: SHAR ASTORGA on 10/07/21811 Hydrochlorothiazide (Hydrochlorothiazide) 25 Mg Tablet, 25 MG PO HS, (Reported) Entered as Reported by: SHAR ASTORGA on 10/07/21811 Lovastatin (Lovastatin) 40 Mg Tablet, 40 MG PO HS, (Reported) Entered as Reported by: SHAR ASTORGA on 10/07/21811 Meloxicam (Mobic) 15 Mg Tablet, 15 MG PO HS, (Reported) Entered as Reported by: SHAR ASTORGA on 10/07/21811 Naproxen Sodium (Aleve) 220 Mg Tablet, 220 MG PO BID PRN for PAIN-MILD (1-4), (R eported) Entered as Reported by: SHAR ASTORGA on 10/07/21811 Tamsulosin HCl (Flomax) 0.4 Mg Cap, 0.4 MG PO HS, (Reported) Entered as Reported by: SHAR ASTORGA on 10/07/21811 Vit A/Vit C/Vit E/Zinc/Copper (Preservision Areds Tablet) 1 Each Tablet, 1 EACH PO HS, (Reported) Entered as Reported by: SHAR ASTORGA on 10/07/21811 Past Lpjqxoy-Vtfgtu-Gslfvw Hx Patient Social History Smoking Status: Current Everyday Smoker Alcohol Use?: No Immunizations Up To Date Tetanus Booster (TDap): Less than 5yrs Date of Pneumonia Vaccine: Mar 03, 2013 Date of Influenza Vaccine: Aug 12, 2015 Surgeries History of Surgeries: Yes Surgeries: Abdominal (hernia -umbilical and inguinal), Orthopedic Respiratory History of Respiratory Disorde: Yes Respiratory Disorders: COPD Cardiovascular History of Cardiac Disorders: Yes Cardiac Disorders: Coronary Artery Disease, High Cholesterol Neurological History of Neurological Disord: No Reproductive System Hx Reproductive Disorders: No Genitourinary History of Genitourinary Disor: Yes Genitourinary Disorders: Benign Prostatic Hyperpl Gastrointestinal History of Gastrointestinal Di: No Musculoskeletal History of Musculoskeletal Dis: Yes Musculoskeletal Disorders: Degenerate Disk Disease, Arthritis, Chronic Back Pain Endocrine History of Endocrine Disorders: No HEENT History of HEENT Disorders: No Loss of Vision: Bilateral Hearing Impairment: Bilateral Hearing Aide Cancer History of Cancer: No Psychosocial History of Psychiatric Problem: No Integumentary History of Skin or Integumenta: No Blood Transfusions Adverse Reaction to a Blood Tr: No Family Medical History Significant Family History: Heart Disease, Cancer (Brother - Colon, Brother - Prostate), Diabetes Family Medial History: Abdominal aortic aneurysm 09 BROTHER ( OF BRAIN ANEURISM) Alcoholism 03 FATHER 09 BROTHER Cancer 09 BROTHER ( OF THROAT CA) 09 BROTHER ( OF PROSTATE CA) 09 BROTHER (BONE CANCER) Congestive heart failure 03 FATHER (FATHER AT 98 OF CHF) Family history: Arthritis 03 FATHER 03 MOTHER 09 BROTHER Family history: Diabetes mellitus 09 BROTHER Myocardial infarction 03 MOTHER (MOTHER OF [place]) Review of Systems-General Constitutional: chills; No fever; malaise, weakness EENTM: hearing loss; No blurred vision, No epistaxis, No throat swelling Respiratory: cough; No dyspnea on exertion, No hemoptysis; phlegm; No short of breath Cardiovascular: No chest pain, No palpitations Gastrointestinal: abdominal pain; No jaundice; nausea; No vomiting Genitourinary: No dysuria; frequency; No hematuria Musculoskeletal: back pain, joint pain, joint swelling, muscle stiffness, muscle cramps Skin: No change in color, No change in hair/nails Psychiatric/Neurological: Denies Anxiety, Denies Depressed, Denies Seizure, Denies Weakness Physical Exam-General Problems Physical Exam Vital Signs Vital Signs - First Documented 04/09/23 10:50 Temp 37.5 Pulse 99 Resp 22 B/P (MAP) 108/69 (82) Pulse Ox 94 Capillary Refill : Less Than 3 Seconds General Appearance: WD/WN, moderate distress (secondary) Eyes: Bilateral Eye PERRL, Bilateral Eye EOMI HEENT: pharynx normal; No scleral icterus (R), No scleral icterus (L); other (edentulous) Neck: non-tender, supple Respiratory: lungs clear, normal breath sounds, no respiratory distress, no accessory muscle use Cardiovascular: regular rate, rhythm, no murmur Gastrointestinal: soft, no organomegaly, guarding (voluntary in RUQ), tenderness; No hernia Rectal: deferred Back: no CVA tenderness, no vertebral tenderness Extremities: no pedal edema, no calf tenderness, normal capillary refill Neurologic/Psychiatric: sausage cutter II-XII nml as tested, no motor/sensory deficits, alert, normal mood/affect, oriented x 3 Skin: normal color, warm/dry Lymphatic: no adenopathy (neck, axilla or groin) Data Review Labs Laboratory Tests 04/09/23 10:54: White Blood Count 32.9*H, Red Blood Count 5.29, Hemoglobin 15.1, Hematocrit 45, Mean Corpuscular Volume 85, Mean Corpuscular Hemoglobin 29, Mean Corpuscular Hemoglobin Concent 34, Red Cell Distribution Width 14.5, Platelet Count 244, Mean Platelet Volume 10.9, Immature Granulocyte % (Auto) 1, Neutrophils (%) (Auto) 87H, Lymphocytes (%) (Auto) 4L, Monocytes (%) (Auto) 8, Eosinophils (%) (Auto) 0, Basophils (%) (Auto) 0, Neutrophils # (Auto) 28.5H, Lymphocytes # (Auto) 1.4, Monocytes # (Auto) 2.5H, Eosinophils # (Auto) 0.0, Basophils # (Auto) 0.1, Immature Granulocyte # (Auto) 0.5H, Neutrophils % (Manual) 83, Lymphocytes % (Manual) 3, Monocytes % (Manual) 7, Eosinophils % (Manual) 0, Basophils % (Manual) 0, Band Neutrophils 7, Blood Morphology Comment NORMAL, Prothrombin Time 17.1H, INR Comment 1.4, Activated Partial Thromboplast Time 37H , Sodium Level 136, Potassium Level 4.1, Chloride Level 104, Carbon Dioxide Level 21, Anion Gap 11, Blood Urea Nitrogen 20H, Creatinine 0.96, Estimat Glomerular Filtration Rate 80, BUN/Creatinine Ratio 21, Glucose Level 132H, Calcium Level 9.3, Corrected Calcium 9.5, Total Bilirubin 1.3H, Aspartate Amino Transf (AST/SGOT) 14, Alanine Aminotransferase (ALT/SGPT) 8, Alkaline Phosphatase 65, C-Reactive Protein High Sensitivity 22.15H, B-Type Natriuretic Peptide 155.1H, Total Protein 6.9, Albumin 3.8 04/09/23 11:40: Urine Color ORANGE, Urine Clarity CLEAR, Urine pH 6.0, Urine Specific [place] >=1.030, Urine Protein 1+H, Urine Glucose (UA) NEGATIVE, Urine Ketones NEGATIVE, Urine Nitrite POSITIVEH, Urine Bilirubin 1+H, Urine Urobilinogen 4.0, Urine Leukocyte Esterase NEGATIVE, Urine RBC (Auto) NEGATIVE, Urine RBC NONE, Urine WBC 0-2, Urine Squamous Epithelial Cells 0-2, Urine Crystals NONE, Urine Bacteria FEWH, Urine Casts NONE, Urine Mucus MODERATEH, Urine Culture Indicated YES Radiology Date of Exam:04/09/23 CT ABD/PELV W (APPENDICITIS) EXAMINATION: CT abdomen and pelvis with intravenous contrast. TECHNIQUE: Multiple contiguous axial images were obtained through the abdomen and pelvis after the uneventful administration of intravenous contrast. All CT scans use one or more of the following dose optimizing techniques: automated exposure control, MA and/or KvP adjustment based on patient size and exam type or iterative reconstruction. HISTORY: Right lower quadrant pain COMPARISON: 04/09/2016 FINDINGS: Limited views of the lower thorax show paraseptal emphysema. The liver is normal without focal lesion. There is no biliary ductal dilation. Gallbladder is distended and the wall is thickened with pericholecystic fluid. Pancreas is normal. Spleen is normal. Adrenal glands are normal. A left renal cyst has decreased in size. There are a few peripheral calcifications. There are nonobstructing stones in the right kidney. There is no hydronephrosis. Urinary bladder is normal. There is wall thickening of the hepatic flexure of the colon adjacent to the gallbladder. There is no fat plane between the colon and the gallbladder. No free fluid or air. No abdominal or pelvic lymphadenopathy. Aorta is atherosclerotic without aneurysm. There are no suspicious osseus lesions. IMPRESSION: 1. Distended gallbladder with wall thickening and pericholecystic fluid. The gallbladder directly abuts the hepatic flexure of the colon which is also thickened. There is no fat plane between the colon and the gallbladder. Findings favored to represent acute cholecystitis with reactive inflammation of the colon. Dictated on workstation # [id number] Dict: 04/09/23 1222 Trans: 04/09/23 1232 [facility] [id number] Interpreted by: NAZ CENTENO MD Assessment/Plan Assessment/Plan Assessment/Plan Acute Cholecystitis with possible Cholelithiasis Transverse colon Colitis/thickening CAD, HTN, BPH Leukocytosis Anticoagulation on Plavix I reviewed CT images myself and spoke with the ER provider. He definitely has d ilated gallbladder and fluid around it with thickened wall, but I am also concerned about the thickening of the colon. He has not had a colonoscopy since 2008 (clear at that time) and does have some new onset of constipation. In fact, the CT shows retained fecal material proximal to the area of thickening and almost none after it. I recommended Laparoscopic Cholecystectomy with Intraoperative Cholangiogram and all other indicated procedures; will get consent. He may need a colonoscopy in a few weeks, will try and take a look at the colon but that won't tell us what inside looks like. He will be at increased risk from bleeding because of the Plavix, but he has acute cholecystitis and needs gallbladder out. I don't think treating it just with ABX will take care of it. I did give him both options. We discussed risks and complications; not limited to pain, bleeding, infection, scar, damage to bowel or bile duct and need for further procedure. All questions answered to pt and his son's satisfaction. He will get IV fluids, pain meds and ABX. He may stay the night depending on what we find during surgery. WILTON NAIR DO Apr 09, 2023 13:30
[2023-04-09] MEDS ORDERED: LACTATED RINGERS 1,000 ML IV PRN (13:45)
[2023-04-09] MEDS ORDERED: fentaNYL INJ 100 MCG/2 ML AMP ONE (13:48)
[2023-04-09] MEDS: LACTATED RINGERS 1,000 ML IV PRN ×2 (14:00→15:01)
[2023-04-09] MEDS ORDERED: LIDOCAINE/EPI 1%-1:100,000 (XYLOCAINE) 20ML ONE (14:06)
[2023-04-09] MEDS ORDERED: morphine INJ 10 MG/ML 1ML (SYR OR VIAL) ONE (15:12)
[2023-04-09] MEDS ORDERED: ONDANSETRON 4 MG/2 ML (SDV) Z0FRAN ONE ×2 (15:12→15:27)
[2023-04-09] MEDS ORDERED: LIDOCAINE/EPI 1%-1:100,000 (XYLOCAINE) 20ML INJ ONE (15:22)
[2023-04-09] MEDS ORDERED: ROCURONIUM 50 MG/5 ML (ZEMURON) VIAL IV ONE (15:26)
[2023-04-09] MEDS ORDERED: PHENYLEPHRINE 100 MCG/ML 10 ML (ANESTHESIA) SYR ONE (15:26)
[2023-04-09] MEDS ORDERED: proPOfol 200 MG/20 ML (DIPRIVAN) VIAL IV ONE (15:26)
[2023-04-09] MEDS ORDERED: NEOSTIGMINE (BLOXIVERZ ) 1 MG/1ML 10 ML VIAL ONE (15:28)
[2023-04-09] MEDS ORDERED: GLYCOPYRROLATE 0.2 MG/ML (ROBINUL) 2 ML VIAL ONE (15:28)
[2023-04-09] MEDS ORDERED: SEVOFLURANE (ULTANE) 15 ML INHAL SOLN ONE (15:39)
[2023-04-09] MEDS ORDERED: ONDANSETRON 4 MG/2 ML (SDV) Z0FRAN IVP PRN ×2 (15:45→16:00)
[2023-04-09] MEDS ORDERED: HYDROcodone/APAP 5 MG/325 MG (LORTAB) TAB PO PRN (15:45)
[2023-04-09] MEDS ORDERED: morphine INJ 10 MG/ML 1ML (SYR OR VIAL) IVP PRN (15:45)
--- NOTE | 2023-04-09 15:48 | Progress Note-Post Operative ---
Post-Operative Progess Note Surgeon (s)/Reservations Sales Supervisor (s) Surgeon WILTON NAIR DO Reservations Sales Supervisor: Jose Carlos Pre-Operative Diagnosis Acute Cholecystitis, Colitis, CAD Post-Operative Diagnosis Gangrenous GB Colitis CAD Procedure & Operative Findings Date of Procedure 04/09/23 Procedure Performed/Findings PROCEDURE: Laparoscopic cholecystectomy with intraoperative cholangiogram. COMPLICATIONS: None. PROCEDURE: The patient was taken to the operating suite and was prepped and draped in sterile fashion. A surgical pause was performed. Just superior to the umbilicus, a 12 mm incision was made. Dissection was taken down to the fascia, which was then scored and grasped with a Pradeep and the abdomen was then entered. An 0 Vicryl suture was placed in a gfpajd-[id number] fashion and a Marlow trocar was placed and secured. Pneumoperitoneum was achieved and immediately upon entering noted fibrinous material and severe inflammation. A 5mm trochar place in the subxyphoid and 2 in the right upper quadrant; in normal fashion with local lido- gera, #11 blade for stab incision and the versa-step port under direct visual- ization. The gallbladder was found after pushing inflamed omentum out of the way and it was necrotic/gangrenous. It was also very distended and elected to make a hole to drain the gallbladder and make it easier to grasp. The fluid that came out was foul smelling. It was then grasped at fundus and taken in the superior direction. Grasped down at Treviño's pouch and pulled in the infero-lateral di- rection. It was very inflamed and edematous; started to dissect out the cystic duct and cystic artery. Clip was placed on the distal portion of the cystic duct and then clips were placed along the proximal and distal portion of the cystic artery. The cystic duct was then partially transected and an arrow catheter was inserted into the duct. The cholangiogram was then performed. No filling defects were seen, but it was very dilated and took a bit to empty the contrast into the duodenum; had to shoot twice. Catheter removed and clips were placed on proximal portion of the cystic duct. Then the duct and artery were transected. Hook cautery was used to dissect the gallbladder from the gallbladder fossa. However, it was necrotic in the back as well and some of the capsule came off the liver. I had to up the cautery to 55 (on spray) to finally achieve hemostasis. I also encountered a posterior branch of the cystic duct which bled slightly before being clipped. The gallbladder was placed in an Endobag and removed through the 12 mm trocar site. The abdomen was then reinspected and copious amounts of irrigation were used to irrigate the abdomen and there were no signs of active bleeding. Hemostasis had been achieved. I then elected to place a 19 Cameroonian minal drain in the right upper quadrant. It was brought out through the most lateral port incision and sewn in place with 3-0 nylon and hooked up to bulb. The 12 mm fascial defect was then closed with 0 Vicryl suture that had been placed in a blbbxj-[id number]-dwkxu fashion. The abdomen was then desufflated, the trocars were removed. The abdomen was then washed and dried. The skin was then closed using 4-0 Monocryl in a subcuticular fashion. The abdomen was washed and dried and Skin Affix was place over incisions. Patient tolerated the procedure well without any complications and was taken to the recovery room in stable condition. Dr. Branch assisted on this case helping to make incisions, close incisions, identify anatomy and hold anatomy out of the way. I couldn't really tell anything about the portion of thickened colon, but it may have just been due to the inflammation in the area. Anesthesia Type GET Estimated Blood Loss Estimated blood loss (mL): less than 20ml Specimens/Packing Specimens Removed GB and contents WILTON NAIR DO Apr 09, 2023 15:48
--- NOTE | 2023-04-09 15:50 | Diagnostic Imaging Report ---
INDICATION: Fluoroscopy for intraoperative cholangiogram. Fluoroscopy was provided in the OR during intraoperative cholangiogram. 27 seconds of fluoroscopic time was utilized. 163 images were obtained. Accumulation dose was 15.2 mg. Images demonstrate contrast being injected via the cystic duct remnant. Extra hepatic bile duct as well as the visualized intrahepatic bile ducts are unremarkable. No filling defects are seen. There does appear to be a minimal flow into the duodenum. IMPRESSION: Fluoroscopy during intraoperative cholangiogram. Dictated by: Dictated on workstation # [id number]
--- NOTE | 2023-04-09 15:55 | Anesthesia-General Post-Op ---
General Patient Condition Mental Status/LOC: Same as Preop Cardiovascular: Satisfactory Nausea/Vomiting: Absent Respiratory: Satisfactory Pain: Controlled Complications: Absent Post Op Complications Complications None Follow Up Care/Instructions Patient Instructions None needed. Anesthesia/Patient Condition Patient Condition Patient is doing well, no complaints, stable vital signs, no apparent adverse anesthesia problems. No complications reported per nursing. DIXIE MONROE CRNA Apr 09, 2023 15:55
[2023-04-09] MEDS ORDERED: HYDROmorphone 2 MG/ML VIAL (DILAUDID) IV ONE (16:00)
[2023-04-09] MEDS ORDERED: KETOROLAC 30 MG/ML VIAL IVP ONE (16:00)
[2023-04-09] MEDS ORDERED: morphine INJ 10 MG/ML 1ML (SYR OR VIAL) IVP ONE (16:00)
[2023-04-09] MEDS ORDERED: PIPERACILLIN SODIUM/TAZOBACTAM 4.5 GM in NS (IVPB) 100 ML IV NR (16:00)
[2023-04-09] MEDS ORDERED: NS (IVPB) 100 ML ONE (19:40)
[2023-04-09] MEDS ORDERED: PIPERACILLIN/TAZO 4.5 GM VIAL (ZOSYN) IV ONE (19:40)
[2023-04-09] MEDS: LACTATED RINGERS 1,000 ML IV SCH ×2 (21:38→23:53)
[2023-04-09] MEDS: PIPERACILLIN SODIUM/TAZOBACTAM 4.5 GM in NS (IVPB) 100 ML IV SCH (21:38)
[2023-04-10] VITALS (7 sets, daily range): BP systolic 91–128; BP diastolic 55–63
[2023-04-10 05:25] LABS: BASOPHILS % (AUTO) 0 % (0-10); EOSINOPHILS % (AUTO) 0 % (0-10); HEMATOCRIT 39 % (40-54); HEMOGLOBIN 12.7 g/dL (13.3-17.7); LYMPHOCYTES # (AUTO) 1.1 10^3/uL (1.0-4.0); LYMPHOCYTES % (AUTO) 5 % (12-44); MEAN CORPUSCULAR HEMOGLOBIN 29 pg (25-34); MEAN CORPUSCULAR HGB CONC 33 g/dL (32-36); MEAN CORPUSCULAR VOLUME 87 fL (80-99); MEAN PLATELET VOLUME 10.9 fL (9.0-12.2); MONOCYTES # (AUTO) 1.4 10^3/uL (0.0-1.0); MONOCYTES % (AUTO) 6 % (0-12); NEUTROPHILS # (AUTO) 19.4 10^3/uL (1.8-7.8); NEUTROPHILS % (AUTO) 87 % (42-75); PLATELET COUNT 185 10^3/uL (130-400); WHITE BLOOD COUNT 22.3 10^3/uL (4.3-11.0)
[2023-04-10 05:47] LABS: ALBUMIN 2.9 GM/DL (3.2-4.5); BILIRUBIN,TOTAL 0.7 MG/DL (0.1-1.0); CALCIUM 8.3 MG/DL (8.5-10.1); CREATININE SERUM 1.07 MG/DL (0.60-1.30); POTASSIUM 4.3 MMOL/L (3.6-5.0); TOTAL PROTEIN 5.6 GM/DL (6.4-8.2)
[2023-04-10] MEDS: PIPERACILLIN SODIUM/TAZOBACTAM 4.5 GM in NS (IVPB) 100 ML IV SCH ×3 (05:59→21:59)
[2023-04-10] MEDS: LACTATED RINGERS 1,000 ML IV SCH ×2 (07:55→16:08)
[2023-04-10] MEDS: PANTOPRAZOLE 40 MG (PROTONIX) VIAL IVP SCH (08:13)
--- NOTE | 2023-04-10 10:24 | Progress Note - Surgery ---
YAZMIN SIMS 04/10/23 1024: Subjective Date Seen by a Provider: Apr 10, 2023 Time Seen by a Provider: 09:00 Subjective/Events-last exam Patient is seen this morning sitting up in bed with the company of his son and daughter in law. He states that he is feeling better than he was the day prior when we consulted him in the ED. He states that he is currently not having any pain or tenderness associated with the surgery. He says that he does have some tenderness to his drain port site but says its more of a nuissance pain than anything else. He and his nurse state that he has been having trouble urinating, with his history of BPH, they had to straight cath him the night prior and have got minimal return upon doing so. He says he has not taken his"Pee medicine" in a couple days. He states that he is having no bowel movements or passing of flatulance at this point either. He says he has not ambulated much around the room since his surgery last night. His BP is currently 97/61 and his WBC had went from 33k to 22.3k from yesterday to this morning. He denies any fever, chills, nausea, vomiting, palpitations or shortness of breath. His nurse states that his O2 sats have been hovering between 88 and 93% as he has COPD, but he does not take oxygen at home. Review of Systems General: No Chills, No Night Sweats, No Fatigue HEENT: No Head Aches, No Eye Pain Pulmonary: No Dyspnea; Cough (pleghm stuck in throat) Cardiovascular: No: Chest Pain, Palpitations Gastrointestinal: No: Nausea, Vomiting, Abdominal Pain, Diarrhea Genitourinary: No Frequency; Retention Musculoskeletal: No: neck pain, shoulder pain Neurological: No: Weakness, Numbness Objective Exam Vital Signs Date Time Temp Pulse Resp B/P (MAP) Pulse Ox O2 Delivery O2 Flow Rate FiO2 04/10/23 09:16 91 Nasal Cannula 1.00 04/10/23 07:56 36.9 64 16 97/61 (73) 99 Nasal Cannula 3.00 04/10/23 03:11 36.7 79 18 113/58 (76) 95 Nasal Cannula 3.00 3.00 04/09/23 23:36 36.5 75 18 104/58 (73) 95 Nasal Cannula 3.00 3.00 04/09/23 19:02 36.8 79 18 99/58 (72) 97 Nasal Cannula 3.00 04/09/23 18:31 Room Air 3.00 04/09/23 17:17 95 Nasal Cannula 3.00 04/09/23 16:48 37.0 86 18 101/57 (72) 95 Nasal Cannula 3.00 04/09/23 16:40 Nasal Cannula 3.00 04/09/23 16:30 Nasal Cannula 3.00 04/09/23 16:30 36.9 16 104/62 (76) 94 Nasal Cannula 3.00 04/09/23 16:20 20 101/60 (74) 98 OxyMask 10.00 04/09/23 16:15 OxyMask 10.00 04/09/23 16:10 17 107/63 (78) 99 OxyMask 10.00 04/09/23 16:00 OxyMask 10.00 04/09/23 16:00 18 122/68 (86) 99 OxyMask 10.00 04/09/23 15:50 22 123/77 (92) 98 OxyMask 10.00 04/09/23 15:45 36.3 22 117/79 (92) 98 OxyMask 10.00 04/09/23 15:45 OxyMask 10.00 04/09/23 14:08 37.4 87 17 141/85 97 Room Air 04/09/23 10:50 37.5 99 22 108/69 (82) 94 I & O 04/10/23 07:00 Intake Total 1370 ml Output Total 795 ml Balance 575 ml Capillary Refill : Less Than 3 Seconds General Appearance: No Apparent Distress, WD/WN HEENT: PERRL/EOMI Neck: Non Tender, Supple Respiratory: Chest Non Tender, Lungs Clear, No Accessory Muscle Use, No Respiratory Distress Cardiovascular: Regular Rate, Rhythm, No Edema, No Gallop, No Murmur Gastrointestinal: soft; No distended; tenderness (RUQ tenderness at port site) Extremity: No Calf Tenderness, No Pedal Edema Neurologic/Psychiatric: Alert, Oriented x3, Normal Mood/Affect Skin: Warm/Dry Lymphatic: No Adenopathy (neck, supra and subclavicular) Results Lab Laboratory Tests 04/09/23 10:54: White Blood Count 32.9*H, Red Blood Count 5.29, Hemoglobin 15.1, Hematocrit 45, Mean Corpuscular Volume 85, Mean Corpuscular Hemoglobin 29, Mean Corpuscular Hemoglobin Concent 34, Red Cell Distribution Width 14.5, Platelet Count 244, Mean Platelet Volume 10.9, Immature Granulocyte % (Auto) 1, Neutrophils (%) (Auto) 87H, Lymphocytes (%) (Auto) 4L, Monocytes (%) (Auto) 8, Eosinophils (%) (Auto) 0, Basophils (%) (Auto) 0, Neutrophils # (Auto) 28.5H, Lymphocytes # (Auto) 1.4, Monocytes # (Auto) 2.5H, Eosinophils # (Auto) 0.0, Basophils # (Auto) 0.1, Immature Granulocyte # (Auto) 0.5H, Neutrophils % (Manual) 83, Lymphocytes % (Manual) 3, Monocytes % (Manual) 7, Eosinophils % (Manual) 0, Basophils % (Manual) 0, Band Neutrophils 7, Blood Morphology Comment NORMAL, Pr othrombin Time 17.1H, INR Comment 1.4, Activated Partial Thromboplast Time 37H, Sodium Level 136, Potassium Level 4.1, Chloride Level 104, Carbon Dioxide Level 21, Anion Gap 11, Blood Urea Nitrogen 20H, Creatinine 0.96, Estimat Glomerular Filtration Rate 80, BUN/Creatinine Ratio 21, Glucose Level 132H, Calcium Level 9.3, Corrected Calcium 9.5, Total Bilirubin 1.3H, Aspartate Amino Transf (AST/SGOT) 14, Alanine Aminotransferase (ALT/SGPT) 8, Alkaline Phosphatase 65, C-Reactive Protein High Sensitivity 22.15H, B-Type Natriuretic Peptide 155.1H, Total Protein 6.9, Albumin 3.8 04/09/23 11:40: Urine Color ORANGE, Urine Clarity CLEAR, Urine pH 6.0, Urine Specific [place] >=1.030, Urine Protein 1+H, Urine Glucose (UA) NEGATIVE, Urine Ketones NEGATIVE, Urine Nitrite POSITIVEH, Urine Bilirubin 1+H, Urine Urobilinogen 4.0, Urine Leukocyte Esterase NEGATIVE, Urine RBC (Auto) NEGATIVE, Urine RBC NONE, Urine WBC 0-2, Urine Squamous Epithelial Cells 0-2, Urine Crystals NONE, Urine Bacteria FEWH, Urine Casts NONE, Urine Mucus MODERATEH, Urine Culture Indicated YES 04/10/23 04:58: White Blood Count 22.3H, Red Blood Count 4.46, Hemoglobin 12.7L, Hematocrit 39L, Mean Corpuscular Volume 87, Mean Corpuscular Hemoglobin 29, Mean Corpuscular Hemoglobin Concent 33, Red Cell Distribution Width 14.6H, Platelet Count 185, Me an Platelet Volume 10.9, Immature Granulocyte % (Auto) 1, Neutrophils (%) (Auto) 87H, Lymphocytes (%) (Auto) 5L, Monocytes (%) (Auto) 6, Eosinophils (%) (Auto) 0, Basophils (%) (Auto) 0, Neutrophils # (Auto) 19.4H, Lymphocytes # (Auto) 1.1, Monocytes # (Auto) 1.4H, Eosinophils # (Auto) 0.0, Basophils # (Auto) 0.0, Immature Granulocyte # (Auto) 0.3H, Sodium Level 135, Potassium Level 4.3, Chloride Level 106, Carbon Dioxide Level 21, Anion Gap 8, Blood Urea Nitrogen 29H, Creatinine 1.07, Estimat Glomerular Filtration Rate 70, BUN/Creatinine Ratio 27, Glucose Level 124H, Calcium Level 8.3L, Corrected Calcium 9.2, Total Bilirubin 0.7, Aspartate Amino Transf (AST/SGOT) 30, Alanine Aminotransferase (ALT/SGPT) 26, Alkaline Phosphatase 58, Total Protein 5.6L, Albumin 2.9L Assessment/Plan Assessment/Plan Assessment/Plan Status Post Laporascopic Cholecystectomy CAD, HTN, BPH Leukocytosis Anticoagulation on Plavix Patient is currently maintaining drinking liquids well today. He is not having any nausea or vomiting. He has not moved to any solid foods at this time, but can proceed with them and see how he tolerates it. He says that he is tolerating his pain well and is feeling much better than the day prior. He currently still has his drainage tube in that has had an output of over 100 since last night. He is currently still struggling with his BPH and is having to be straight cath'd. Will move to get him back onto his BPH medications and see if this helps with symptoms. FRANKLIN BERNARDO DO 04/10/23 1406: Subjective Time Seen by a Provider: 13:25 Subjective/Events-last exam Pt seen and examined, states his pain is fine until he coughs. His main complaint is he wants to eat and he is having trouble urinating. Review of Systems Pulmonary: No Dyspnea; Cough (pleghm stuck in throat) Cardiovascular: No: Chest Pain, Palpitations Gastrointestinal: Abdominal Pain; No: Nausea, Vomiting Genitourinary: Retention Objective Exam General Appearance: No Apparent Distress, WD/WN HEENT: PERRL/EOMI Respiratory: Chest Non Tender, Lungs Clear, Normal Breath Sounds, No Accessory Muscle Use, No Respiratory Distress Cardiovascular: Regular Rate, Rhythm, No Murmur Gastrointestinal: soft, distended (mildly), tenderness (RUQ tenderness and mild at incisions), other (KATHRYN drain with serous fluid) Neurologic/Psychiatric: Alert, Oriented x3 Assessment/Plan Assessment/Plan Assessment/Plan Urinary Retention Status Post Laporascopic Cholecystectomy CAD, HTN, BPH Leukocytosis Anticoagulation on Plavix I was called by nurse last night for urinary retention and they had to do a str aight cath, pt takes Flomax at home and will restart it. Patient is currently doing well with liquids and will advance to low fat diet. He is not having any nausea or vomiting. KATHRYN had an output of over 100 since last night. Continue pain meds as needed. His WBC came done from 33 to 22, will continue IV ABX for one more day and then switch to PO. Will hold Plavix one more day. Supervisory-Addendum Brief Verification & Attestation Participated in pt care: history, MDM, physical Personally performed: exam, history, MDM, supervision of care Care discussed with: Medical Student Procedures: n/a Verification and Attestation of Medical Student E/M Service A PA student performed and documented this service. I then reviewed and verified all information documented by the medical student and made modifications to such information, when appropriate. I personally performed a physical exam, medical decision making and then discussed any differences between the notes and made revisions as necessary to create one note. Franklin Bernardo , 04/10/23 , 14:06 YAZMIN SIMS Apr 10, 2023 10:24 FRANKLIN BERNARDO DO Apr 10, 2023 14:06
[2023-04-10] MEDS ORDERED: TAMSULOSIN 0.4 MG (FLOMAX) CAP PO SCH (18:00)
[2023-04-10] MEDS ORDERED: FUROSEMIDE 40 MG/4 ML INJ (LASIX) IVP ONE (19:30)
[2023-04-10] MEDS ORDERED: FUROSEMIDE 40 MG/4 ML INJ (LASIX) ONE (19:43)
[2023-04-10] MEDS ORDERED: RT-ALBUTEROL SULF 2.5 MG/3 ML PRE-MIX VIAL INH PRN (21:00)
[2023-04-10] MEDS: RT-ALBUTEROL/IPRATROPIUM 3 ML (DUONEB) VIAL INH SCH (22:20)
[2023-04-11] MEDS: RT-ALBUTEROL/IPRATROPIUM 3 ML (DUONEB) VIAL INH SCH ×2 (02:52→07:23)
[2023-04-11 03:11] VITALS: BP 124/64
[2023-04-11] MEDS: PIPERACILLIN SODIUM/TAZOBACTAM 4.5 GM in NS (IVPB) 100 ML IV SCH ×2 (05:58→13:13)
--- NOTE | 2023-04-11 07:34 | Progress Note - Surgery ---
YAZMIN SIMS 04/11/23 0734: Subjective Date Seen by a Provider: Apr 11, 2023 Time Seen by a Provider: 07:05 Subjective/Events-last exam Patient is seen this morning laying down in bed. He states that he is not feeling as good as he was yesterday because he is constipated. He says that he usually deals with this at home and takes OTC medications to help him use the bathroom. He says that he is not passing gas still. He is only ambulating to the bathroom and not down the halls. He is urinating better today since starting Flomax the day prior and says he is having no issues with that anymore. He has lower abdominal pain that he says just feels like he is constipated. He is not having any tenderness to drainage port site and says that it is not bothering him at all today. He denies any shortness of breath, syncope, palpitations, chills or fever. Review of Systems General: No Chills, No Night Sweats, No Fatigue HEENT: No Head Aches, No Visual Changes Pulmonary: No Dyspnea; Cough Cardiovascular: No: Chest Pain, Palpitations, Edema Gastrointestinal: Abdominal Pain (constipation in lower abdomen), Constipation; No: Nausea, Vomiting Genitourinary: No Dysuria, No Frequency Musculoskeletal: No: back pain Neurological: No: Numbness, Change in speech Objective Exam Vital Signs Date Time Temp Pulse Resp B/P (MAP) Pulse Ox O2 Delivery O2 Flow Rate FiO2 04/11/23 07:25 95 Nasal Cannula 3.00 04/11/23 03:11 37.2 87 18 124/64 (84) 94 Nasal Cannula 3.00 3.00 04/10/23 23:21 36.6 84 18 128/63 (84) 96 Nasal Cannula 3.00 3.00 04/10/23 22:21 96 Nasal Cannula 3.00 04/10/23 20:12 37.4 77 95 04/10/23 20:00 93 Nasal Cannula 3.00 04/10/23 19:11 37.4 77 18 127/61 (83) 95 Nasal Cannula 3.00 04/10/23 15:37 37.3 67 18 108/58 (75) 94 Nasal Cannula 1.00 04/10/23 11:15 36.9 63 18 91/55 (67) 94 Nasal Cannula 1.00 04/10/23 09:16 91 Nasal Cannula 1.00 04/10/23 09:16 91 Room Air 1.00 04/10/23 07:56 36.9 64 16 97/61 (73) 99 Nasal Cannula 3.00 I & O 04/11/23 07:00 Intake Total 1660 ml Output Total 2900 ml Balance -1240 ml Capillary Refill : Less Than 3 Seconds General Appearance: No Apparent Distress, WD/WN HEENT: PERRL/EOMI Neck: Non Tender, Supple Respiratory: Chest Non Tender, Lungs Clear, Normal Breath Sounds, No Accessory Muscle Use, No Respiratory Distress Cardiovascular: Regular Rate, Rhythm, No Murmur Gastrointestinal: soft, distended (minimally. Better than yesterday. ), tenderness (Lower abdomen tenderness), other (KATHRYN drain with serous fluid) Extremity: No Calf Tenderness, No Pedal Edema Neurologic/Psychiatric: Alert, Oriented x3 Skin: Warm/Dry Lymphatic: No Adenopathy (neck, supra and subclavicular) Assessment/Plan Assessment/Plan Assessment/Plan Urinary Retention Status Post Laporascopic Cholecystectomy CAD, HTN, BPH Leukocytosis Anticoagulation on Plavix Patient is doing well on Flomax since starting yesterday. He is maintaining a low fat diet well and is not having any nausea or vomiting. KATHRYN has minimal amount of drainage since yesterday. Will continue his pain medication as needed. He will switch from IV ABX to PO ABX today. Will continue back on Plavix today. Have him ambulate down halls today and give him constipation medications to help with his constipation and pain. FRANKLIN BERNARDO DO 04/11/23 1345: Subjective Time Seen by a Provider: 11:53 Subjective/Events-last exam Pt seen and examined, denies abdominal pain and states he is breathing fine. His only complaint is that he has not had a BM. Review of Systems General: No Chills, No Night Sweats Pulmonary: No Dyspnea; Cough Cardiovascular: No: Chest Pain, Palpitations Gastrointestinal: Abdominal Pain (constipation in lower abdomen), Constipation; No: Nausea, Vomiting Genitourinary: No Dysuria, No Frequency Objective Exam General Appearance: No Apparent Distress, Obese HEENT: PERRL/EOMI Respiratory: Chest Non Tender, Lungs Clear, Normal Breath Sounds, No Accessory Muscle Use, No Respiratory Distress Cardiovascular: Regular Rate, Rhythm, No Murmur Gastrointestinal: soft, distended (minimally. Better than yesterday. ), tenderness (Lower abdomen tenderness), other (KATHRYN drain with serous fluid, incisions c/d/i) Assessment/Plan Assessment/Plan Assessment/Plan Urinary Retention -improved Status Post Laporascopic Cholecystectomy CAD, HTN, BPH Leukocytosis Anticoagulation on Plavix Patient is doing well on Flomax since starting yesterday. He is maintaining a low fat diet well and is not having any nausea or vomiting. KATHRYN has minimal amount of drainage since yesterday. Will continue his pain medication as needed. Will switch to PO ABX today. OK to start back on Plavix today. Have him ambulate down halls today and give him constipation medications to help with his constipation and pain. Will DC IV and DC home Supervisory-Addendum Brief Verification & Attestation Participated in pt care: history, MDM, physical Personally performed: exam, history, MDM, supervision of care Care discussed with: Medical Student Procedures: n/a Verification and Attestation of Medical Student E/M Service A PA student performed and documented this service. I then reviewed and verified all information documented by the medical student and made modifications to such information, when appropriate. I personally performed a physical exam, medical decision making and then discussed any differences between the notes and made revisions as necessary to create one note. Franklin Bernardo , 04/11/23 , 13:45 YAZMIN SIMS Apr 11, 2023 07:34 FRANKLIN BERNARDO DO Apr 11, 2023 13:45
[2023-04-11 07:54] VITALS: BP 128/69
[2023-04-11] MEDS: PANTOPRAZOLE 40 MG (PROTONIX) VIAL IVP SCH (08:38)
[2023-04-11 11:35] VITALS: BP 124/69
[2023-04-11] MEDS ORDERED: ACHD5005 PO (13:46)
--- NOTE | 2023-04-11 13:47 | Discharge Inst-Surgical ---
Discharge Inst-Surgical Depart Medication/Instructions New, Converted or Re-Newed RX: Transmitted to Pharmacy Patient Instructions Follow up Appt: Make appointment for 1 week. [phone] Instructions: No lifting greater than 20 pounds. No strenuous activity. May shower in 24 hours, no tub bath or soaking. Use incentive spirometer at home as directed. No Smoking Skin/Wound Care: May remove bandages in am. You need to leave the Dermabond on incision it will fall off on it's own. Symptoms to Report: Appetite Changes, Extremity Discoloration, Numbness/Tingling, Swelling Increased, Bleeding Excessive, Eyesight Changes, Pain Increased, Urine Color Change, Constipation(Persistent), Fever over 101 degree F, Pain/Pressure in chest, Urinating Difficulty, Cough Up/Vomit Blood, Heart Beat Irreg/Pounding, Pain/Pressure in jaw, Cramps in feet or legs, Lightheadedness, Pain/Pressure in shoulder, Diarrhea(Persistent), Memory Changes Suddenly, Questions/Concerns, Weight gain consecutive days, Dizziness/Fainting, Nausea/Vomiting, Shortness of Breath, Weight gain over 2 pounds If questions or concerns contact your physician Or seek help at emergency department. Activity Activity Instructions: Avoid Stress to Incision Driving Instructions: No Driving/Refer to Diet Discharge Diet: Avoid Fatty Foods, Low Fat/Low Cholesterol Diet After 24 Hours: Clear Liquid if Nauseous If Any Problems/Questions/Issu: Contact Your Physician, Go to Emergency Room Skin/Wound Care Infection Signs and Symptoms: Increased Redness, Foul Odor of Wound, Increased Drainage, Skin Itchy or Has a Rash, Increased Swelling, Temperature Above 101 F Wound Care Comment: KATHRYN drain teaching Bathing Instructions: WILTON Massey DO Apr 11, 2023 13:47
== END 2023-04-11 15:20 | disposition home or self-care (01) | DRG 419 ==
LOC: EDUNIT# 10:41 → ER 10:43 → SDC 13:25 → 4TH 15:35
PROVIDERS: ADMIT Surgery; ATTEND Surgery
PROC: BF101ZZ Fluoroscopy of Bile Ducts using Low Osmolar Contrast (ICD-10-PCS; 2023-04-09)
PROC: 0FT44ZZ Resection of Gallbladder, Percutaneous Endoscopic Approach (ICD-10-PCS; principal; 2023-04-09 14:17)
DX: K81.0 Acute cholecystitis (principal); K82.A1 Gangrene of gallbladder in cholecystitis; K52.9 Noninfective gastroenteritis and colitis, unspecified; N40.1 Benign prostatic hyperplasia with lower urinary tract symptoms; R33.8 Other retention of urine; I25.10 Atherosclerotic heart disease of native coronary artery without angina pectoris; K59.00 Constipation, unspecified; F17.210 Nicotine dependence, cigarettes, uncomplicated; E78.00 Pure hypercholesterolemia, unspecified; I10 Essential (primary) hypertension; J44.9 Chronic obstructive pulmonary disease, unspecified; H54.3 Unqualified visual loss, both eyes; H91.93 Unspecified hearing loss, bilateral; Z79.01 Long term (current) use of anticoagulants; Z79.1 Long term (current) use of non-steroidal anti-inflammatories (NSAID); Z79.82 Long term (current) use of aspirin; Z79.899 Other long term (current) drug therapy; Z97.4 Presence of external hearing-aid; Z95.5 Presence of coronary angioplasty implant and graft
CPT/HCPCS: 36415; 71045; 74177; 76000; 80053; 81000; 83880; 85007; 85025; 85027; 85610; 85730; 86141; 87088; 94640